=== PATIENT | female | born 1950 | race Caucasian/White ===

== ENCOUNTER → 2016-08-19 | Outpatient (CLI) | payer MEDICARE ==
--- NOTE | 2016-08-19 15:29 | Diagnostic Imaging Report ---
EXAMINATION: Bilateral diagnostic mammogram with a Computer Aided Detection (CAD) system. INDICATION: Multiple nodules are seen on the right on the previous mammograms of 05/13/2016 and 01/01/2016 exams. FINDINGS: The breasts are composed of heterogeneously dense parenchyma which may decrease mammographic sensitivity. There is bilateral nodularity to the breast parenchyma, more prominent on the right side. No definite change from the prior exams, however, is seen. Bilateral benign-appearing calcifications are noted. IMPRESSION: Stable bilateral nodularity to the breast parenchyma is noted bilaterally. An ultrasound evaluation is pending. ACR BI-RADS Category 0: Incomplete. (Needs additional imaging evaluation). Result letter will be mailed to the patient. Note: At least 10% of breast cancer is not imaged by mammography. Dictated by: Dictated on workstation # [id number]
--- NOTE | 2016-08-19 15:34 | Diagnostic Imaging Report ---
EXAMINATION: Bilateral breast ultrasound. INDICATION: Nodularity of the breast parenchyma, stable x 1 year. FINDINGS: The four-quadrants and retroareolar region of each breast were scanned with no underlying abnormality seen in the left breast. In the right breast, there is a simple cyst at the 9 o'clock zone 7 cm from the nipple measuring 1.4 x 0.5 x 1.1 cm in size. This may correlate with one of the nodules seen on mammography. No suspicious mass. IMPRESSION: No suspicious mass. Stable nodularity in the breasts is probably related to a benign parenchymal pattern. Another followup in 12 months with mammography is recommended to ensure longer-term stability. ACR BI-RADS Category 3: Probably benign findings. Dictated by: Dictated on workstation # [id number]
== END ==
LOC: RAD 13:05
PROVIDERS: ATTEND Family Medicine
DX: R92.8 Other abnormal and inconclusive findings on diagnostic imaging of breast (principal)
CPT/HCPCS: 77066

== ENCOUNTER 2016-12-17 15:15 | Outpatient (RCR) | payer MEDICARE, MEDICAID | END 2016-12-19 | disposition home or self-care (01) | PROVIDERS: ATTEND Orthopaedic Surgery | DX: Z47.1 Aftercare following joint replacement surgery; Z96.651 Presence of right artificial knee joint ==

== ENCOUNTER 2017-01-15 12:57 | Outpatient (RCR) | payer MEDICARE, MEDICAID | END 2017-02-05 08:55 | disposition home or self-care (01) | PROVIDERS: ATTEND Orthopaedic Surgery | DX: Z47.1 Aftercare following joint replacement surgery (principal); Z96.651 Presence of right artificial knee joint ==

== ENCOUNTER 2017-11-17 05:59 | Inpatient (IN) | payer MEDICARE, MEDICAID ==
--- NOTE | 2017-11-08 13:08 | HISTORY AND PHYSICAL ---
DATE OF SERVICE: ADMISSION HISTORY AND PHYSICAL This will be for inpatient admission on 11/17/2017 for left total knee arthroplasty. DATE OF ADMISSION: 11/17/2017. HISTORY OF PRESENT ILLNESS: The patient is a 67-year-old female with longstanding progressive left knee pain. Radiographs reveal severe medial and patellofemoral arthrosis with moderate lateral compartment arthrosis. She has undergone treatment with injections, physical therapy, anti-inflammatories and activity modifications without relief. The patient has to ambulate with assistive devices because of the knee. Due to functional impairment and failure to improve with conservative measures, the patient elected to proceed with surgical intervention. REVIEW OF SYSTEMS: No chest pain, no shortness of breath. No dysuria. PAST MEDICAL HISTORY: Hypertension, hyperlipidemia, osteoporosis. PAST SURGICAL HISTORY: Right total knee arthroplasty, cataracts and lipoma excision. FAMILY HISTORY: Noncontributory. PRIMARY CARE PROVIDER: [facility]. MEDICATIONS: Lisinopril, simvastatin, calcium, turmeric, Naprosyn, Tylenol, alendronate and hydrocodone. ALLERGIES: PENICILLIN. SOCIAL HISTORY: The patient drinks alcohol rarely. Denies tobacco use. PHYSICAL EXAMINATION: GENERAL: The patient is well developed, well-nourished, no acute distress. HEENT: Normocephalic, atraumatic. Pupils are equal, round and reactive to light. Oropharynx is clear. NECK: Supple, no lymphadenopathy. LUNGS: Clear to auscultation bilaterally. HEART: Regular rate and rhythm. ABDOMEN: Soft, nontender, nondistended. EXTREMITIES: The left knee demonstrates a moderate effusion. There is no erythema or warmth. No skin lesions noted. Range of motion 0/120. No varus valgus laxity. Trace anterior drawer, negative posterior drawer. There is patellofemoral crepitus and pain with patellar loading. She has pain medially with Daisha's and palpation along her medial femoral condyle. IMPRESSION: Left knee severe osteoarthritis unresponsive to conservative measures. PLAN: Left total knee arthroplasty. Risks, benefits, options, ramifications and recovery have been discussed at length with the patient. She understands and wishes to proceed. The patient will require inpatient admission for gait training, pain management and comorbidities including obesity, which will lead to need for more intensive therapy prior to discharge. Job ID: [id number] DocumentID: [id number] Dictated Date: 11/08/2017 09:58:25 Outer Diameter Technician Date: 11/08/2017 10:30:04 Dictated By: LEX LLOYD MD
[~2017-11-17] VITALS: Ht 157.5 cm; Wt 99.3 kg
[~2017-11-17 05:59] MED LIST: ATOR40TA70 PO; DOXY100C42 PO; LISI1TAB10 PO
--- OUTSIDE RECORDS SUMMARY | 2017-11-17 06:04 | XMS REPORT ---
Author Author ALEJANDRO FORD [facility] Address [address] [place] [address] Care Team Providers Care Kinesiologist Name Role Phone ALEJANDRO FORD Unavailable PROBLEMS Type Condition ICD9-CM Code LZW19-FK Code Onset Dates Condition Status SNOMED Code Problem Osteoarthritis of both hips, unspecified osteoarthritis type M16.0 Active 259982557 Problem Mixed hyperlipidemia E78.2 Active 419936276 Problem Rosacea L71.9 Active 286982816 Problem Essential hypertension I10 Active 99174736 Problem Status post right knee replacement Z96.651 Active 782843317 Problem Insulin resistance E88.81 Active 62636559 Problem BMI 40.0-44.9, adult Z68.41 Active 703430609 Problem Primary osteoarthritis involving multiple joints M15.0 Active 616325702 Problem Other obesity due to excess calories E66.09 Active 65549659299886 Problem Abnormal mammogram R92.8 Active 256625596 Problem Body mass index (BMI) of 40.0-44.9 in adult Z68.41 Active 332481061 ALLERGIES Substance Reaction Event Type Date Status Penicillin V Potassium hives Drug Allergy 03 Dec, 2016 Active ENCOUNTERS Encounter Location Date Diagnosis [facility] [id number] [place] [address]608- [address] Sep, 2018 BMI 40.0-44.9, adult Z68.41 ; Encounter for immunization Z23 and Essential hypertension I10 [facility] [id number] [address] Aug, Screening for breast cancer Z12.31 [facility] [address] [place] [address] 10752- 9621 July, [facility] [id number] [address] July, Medicare annual wellness visit, initial Z00.00 ; Body mass index (BMI) of 40.0-44.9 in adult Z68.41 ; Essential hypertension I10 ; Primary osteoarthritis involving multiple joints M15.0 and Osteoarthritis of both hips, unspecified osteoarthritis type M16.0 [place] [address] [address] Apr, [place] [id number] [place] [address] 49888- 3175 Mar, Essential hypertension I10 ; Mixed hyperlipidemia E78.2 and Insulin resistance E88.81 [place] [id number] [place] [address] 09386- 9294 Mar, Essential hypertension I10 ; Mixed hyperlipidemia E78.2 ; BMI 40.0-44.9, adult Z68.41 and Insulin resistance E88.81 [place] [id number] [place] [address] 51826- 1871 Dec, Essential hypertension I10 ; Mixed hyperlipidemia E78.2 ; Screening for diabetes mellitus (DM) Z13.1 ; Other obesity due to excess calories E66.09 ; Body mass index (BMI) of 40.0-44.9 in adult Z68.41 ; Abnormal mammogram R92.8 ; Primary osteoarthritis involving multiple joints M15.0 and Encounter for immunization Z23 [place] [address] [place] [address] 40334- 7018 14 Nov, 2016 Rosacea L71.9 [place] [id number] [place] [address] 61202- 6830 08 Nov, 2016 [place] [id number] [place] [address] 80287- 2274 13 Sep, 2016 Arthrofibrosis of knee joint, right M24.661 and Osteoarthritis of left knee, unspecified osteoarthritis type M17.12 [place] [address] [place] [address] 51689- 6578 Aug, Rosacea L71.9 [place] [id number] [place] [address] 55069- 0639 29 Aug, 2016 Arthrofibrosis of knee joint, right M24.661 ; Osteoarthritis of left knee, unspecified osteoarthritis type M17.12 and Osteoarthritis of both hips, unspecified osteoarthritis type M16.0 [place] [address], [place] [address] 15 Aug, 2016 Status post right knee replacement Z96.651 [place] [id number] [place] [address] 22174- 5685 14 Aug, 2016 [place] [id number] [place] [address] 08416- 2065 14 Aug, 2016 [place] [id number] [place] [address] 92238- 6335 Aug, [place] [id number] [place] [address] 21035- 9085 08 Aug, 2016 Essential hypertension I10 and Screening for diabetes mellitus (DM) Z13.1 [place] [address] [place] [address] 86752- 9788 July, History of abnormal mammogram Z87.898 [place] [id number] [place] [address] 74264- 5715 July, Essential hypertension I10 ; Status post right knee replacement Z96.651 ; Cataract of both eyes, unspecified cataract type H26.9 ; Breast cancer screening Z12.39 and Screening for diabetes mellitus (DM) Z13.1 [place] [address], [place] [address] July, IMMUNIZATIONS Vaccine Route Administration Date Status FLUZONE HIGH DOSE (65 AND UP) 2017 IM Intramuscular Dec 22, 2016 Administered SOCIAL HISTORY Never Assessed REASON FOR VISIT Hypertension--[place]upp[place]n PLAN OF CARE Activity Details Follow Up 3 Months with Luis RODRIGUEZ Reason: VITAL SIGNS Height 5'2" in 2016-12-22 Weight 236.3 lbs 2016-12-22 Temperature 98.3 degrees Fahrenheit 2016-12-22 Heart Rate 88 bpm 2016-12-22 Respiratory Rate 20 2016-12-22 BMI 43.22 kg/m2 2016-12-22 Blood pressure systolic 160 mmHg 2016-12-22 Blood pressure diastolic 84 mmHg 2016-12-22 MEDICATIONS Medication Instructions Dosage Frequency Start Date End Date Duration Status Lisinopril-Hydrochlorothiazide 20-25 MG Orally Once a day 2 tablets 24h Active Alendronate Sodium 70 MG Orally once monthly 1 tablet Not-Taking Doxycycline Hyclate 100 mg Orally Once a day 1 capsule 24h Aug, Feb, 30 days Active Simvastatin 20 mg Orally Once a day 2 tablets 24h Active RESULTS No Results PROCEDURES Procedure Date Ordered Result Body Site FLUZONE HIGH DOSE 65 AND UP 2015Dec 22, 2016 SINGLE IMMUNIZATION ADMIN Dec 22, 2016 [facility] VISIT ESTABLISHED PATIENT Dec 22, 2016 INSTRUCTIONS MEDICATIONS ADMINISTERED No Known Medications MEDICAL (GENERAL) HISTORY Type Description Date Medical History hypertension Medical History hyperlipidemia Medical History osteoporosis Medical History Arthritis Surgical History right knee replacement 10/2015 Surgical History cataract-lens implants both eyes Surgical History lumpectomy side of back (large lump, big as football) 2015 Surgical History Right knee scope- scar tissue removed by Dr. Valadez 2017 Hospitalization History Surgery(s)/Childbirth(s) only
--- OUTSIDE RECORDS SUMMARY | 2017-11-17 06:04 | XMS REPORT ---
Author Author ALEJANDRO FORD [facility] Address [address] [place] [address] Care Team Providers Care Cafe Associate Name Role Phone ALEJANDRO FORD Unavailable PROBLEMS Type Condition ICD9-CM Code FJA33-NB Code Onset Dates Condition Status SNOMED Code Problem Osteoarthritis of both hips, unspecified osteoarthritis type M16.0 Active 641469378 Problem Mixed hyperlipidemia E78.2 Active 945584694 Problem Rosacea L71.9 Active 224258705 Problem Essential hypertension I10 Active 84343314 Problem Status post right knee replacement Z96.651 Active 159420354 Problem Insulin resistance E88.81 Active 47849798 Problem BMI 40.0-44.9, adult Z68.41 Active 851944806 Problem Primary osteoarthritis involving multiple joints M15.0 Active 322443902 Problem Other obesity due to excess calories E66.09 Active 73022692010268 Problem Abnormal mammogram R92.8 Active 158607396 Problem Body mass index (BMI) of 40.0-44.9 in adult Z68.41 Active 557253403 ALLERGIES Substance Reaction Event Type Date Status Penicillin V Potassium hives Drug Allergy July, Active ENCOUNTERS Encounter Location Date Diagnosis [place] [address] [place] [address] 24657- 1679 Sep, [facility] [id number] [place] [address] 27125- 8960 Sep, 2018 BMI 40.0-44.9, adult Z68.41 ; Encounter for immunization Z23 and Essential hypertension I10 [facility] [id number] [place] [address] 72173- 9186 Aug, Screening for breast cancer Z12.31 [place] [address] [place] [address] 91036- 7186 July, [place] [address], [place] [address] July, Medicare annual wellness visit, initial Z00.00 ; Body mass index (BMI) of 40.0-44.9 in adult Z68.41 ; Essential hypertension I10 ; Primary osteoarthritis involving multiple joints M15.0 and Osteoarthritis of both hips, unspecified osteoarthritis type M16.0 [place] [id number] [place] [address] 81500- 9083 Apr, [place] [id number] [place] [address] 79416- 8798 Mar, Essential hypertension I10 ; Mixed hyperlipidemia E78.2 and Insulin resistance E88.81 [address] [id number] [place] [address] 12842- 5341 Mar, Essential hypertension I10 ; Mixed hyperlipidemia E78.2 ; BMI 40.0-44.9, adult Z68.41 and Insulin resistance E88.81 [address] [place] [address] 14997- 4171 Dec, Essential hypertension I10 ; Mixed hyperlipidemia E78.2 ; Screening for diabetes mellitus (DM) Z13.1 ; Other obesity due to excess calories E66.09 ; Body mass index (BMI) of 40.0-44.9 in adult Z68.41 ; Abnormal mammogram R92.8 ; Primary osteoarthritis involving multiple joints M15.0 and Encounter for immunization Z23 [address], [place] [address] 14 Nov, 2016 Rosacea L71.9 [address] [place] [address] 17438- 5666 08 Nov, 2016 [address] [id number] [place] [address] 51062- 1410 Sep, Arthrofibrosis of knee joint, right M24.661 and Osteoarthritis of left knee, unspecified osteoarthritis type M17.12 [address] [address] [id number] [place] [address] 15815- 9514 30 Aug, 2016 Rosaluisa L71.9 [place] [address], [place] [address]- 16[address] 29 Aug, 2016 Arthrofibrosis of knee joint, right M24.661 ; Osteoarthritis of left knee, unspecified osteoarthritis type M17.12 and Osteoarthritis of both hips, unspecified osteoarthritis type M16.0 [place] [id number] [place] [address] 20815- 0186 15 Aug, 2016 Status post right knee replacement Z96.651 [place] [id number] [place] [address] 88951- 5890 14 Aug, 2016 [place] [id number] [place] [address] 66470- 4853 14 Aug, 2016 [place] [id number] [place] [address] 84101- 2866 Aug, [place] [id number] [place] [address] 38844- 2181 08 Aug, 2016 Essential hypertension I10 and Screening for diabetes mellitus (DM) Z13.1 [place] [id number] [place] [address] 56587- 1321 17 Jul, 2016 History of abnormal mammogram Z87.898 [place] [id number] [place] [address] 11270- 2672 July, Essential hypertension I10 ; Status post right knee replacement Z96.651 ; Cataract of both eyes, unspecified cataract type H26.9 ; Breast cancer screening Z12.39 and Screening for diabetes mellitus (DM) Z13.1 [address] [address] [place] [address] 75657- 8494 July, IMMUNIZATIONS No Known Immunizations SOCIAL HISTORY Never Assessed REASON FOR VISIT Medicare AWV - Initial Visit-SUKI Moody PLAN OF CARE Activity Details Follow Up 1 Year with Luis for MAWV, and 3 months for CHM Reason: VITAL SIGNS Height 5'2" in 2017-08-11 Weight 233 lbs 2017-08-11 Temperature 98 degrees Fahrenheit 2017-08-11 Heart Rate 80 bpm 2017-08-11 Respiratory Rate 20 2017-08-11 BMI 42.61 kg/m2 2017-08-11 Blood pressure systolic 126 mmHg 2017-08-11 Blood pressure diastolic 80 mmHg 2017-08-11 MEDICATIONS Medication Instructions Dosage Frequency Start Date End Date Duration Status Lisinopril-Hydrochlorothiazide 20-25MG Orally Once a day 2 tablets 24h 90 days Active Lipitor 40 mg Orally Once a day 1 tablet 24h 90 Active Doxycycline Hyclate 100MG Orally Once a day 1 capsule 24h Active Lidoderm 5 % Externally Once a day 1 patch to skin remove after 12 hours 24h July, Nov, 30 days Active RESULTS No Results PROCEDURES Procedure Date Ordered Result Body Site [facility] VISIT IPPE/AWV August 11, 2017 ANNUAL JOEL VST; [facility] PPS INIT August 11, 2017 PT TOBACCO SCREEN RCVD TLK August 11, 2017 FALL RISK ASSESSMENT DOCD August 11, 2017 INSTRUCTIONS MEDICATIONS ADMINISTERED No Known Medications MEDICAL (GENERAL) HISTORY Type Description Date Medical History hypertension Medical History hyperlipidemia Medical History osteoporosis Medical History Arthritis Surgical History right knee replacement 10/2015 Surgical History cataract-lens implants both eyes Surgical History lumpectomy side of back (large lump, big as football) 2015 Surgical History Right knee scope- scar tissue removed by Dr. Valadez 2016 Hospitalization History Surgery(s)/Childbirth(s) only
--- OUTSIDE RECORDS SUMMARY | 2017-11-17 06:04 | XMS REPORT ---
Author Author ALEJANDRO FORD [facility] Address [address] [place] [address] Care Team Providers Care Procedures Rn Name Role Phone ALEJANDRO FORD Unavailable PROBLEMS Type Condition ICD9-CM Code CLX85-FO Code Onset Dates Condition Status SNOMED Code Problem Osteoarthritis of both hips, unspecified osteoarthritis type M16.0 Active 608461361 Problem Mixed hyperlipidemia E78.2 Active 546334235 Problem Rosacea L71.9 Active 526866556 Problem Essential hypertension I10 Active 83932479 Problem Status post right knee replacement Z96.651 Active 294402900 Problem Insulin resistance E88.81 Active 26922762 Problem BMI 40.0-44.9, adult Z68.41 Active 367045588 Problem Primary osteoarthritis involving multiple joints M15.0 Active 859566744 Problem Other obesity due to excess calories E66.09 Active 94428390961417 Problem Abnormal mammogram R92.8 Active 127248004 Problem Body mass index (BMI) of 40.0-44.9 in adult Z68.41 Active 588105066 ALLERGIES No Information ENCOUNTERS Encounter Location Date Diagnosis [place] [place] [address] 29252- 6089 July, Medicare annual wellness visit, initial Z00.00 [facility] [address] [place] [address] 27335- 5568 Apr, [facility] [id number] [place] [address] 53040- 3403 Mar, Essential hypertension I10 ; Mixed hyperlipidemia E78.2 and Insulin resistance E88.81 [facility] [address] [place] [address] 34737- 1487 Mar, Essential hypertension I10 ; Mixed hyperlipidemia E78.2 ; BMI 40.0-44.9, adult Z68.41 and Insulin resistance E88.81 [place] [id number] [place] [address] 93434- 4452 03 Dec, 2017 Essential hypertension I10 ; Mixed hyperlipidemia E78.2 ; Screening for diabetes mellitus (DM) Z13.1 ; Other obesity due to excess calories E66.09 ; Body mass index (BMI) of 40.0-44.9 in adult Z68.41 ; Abnormal mammogram R92.8 ; Primary osteoarthritis involving multiple joints M15.0 and Encounter for immunization Z23 [place] [id number] [place] [address] 82236- 7368 14 Nov, 2016 Rosacea L71.9 [place] [address] 52574- 1623 08 Nov, 2016 [place] [address] 59177- 7119 13 Sep, 2016 Arthrofibrosis of knee joint, right M24.661 and Osteoarthritis of left knee, unspecified osteoarthritis type M17.12 [place] [id number] [place] [address] 26193- 2717 30 Aug, 2016 Rosacea L71.9 [place] [id number] [place] [address] 24522- 7433 29 Aug, 2016 Arthrofibrosis of knee joint, right M24.661 ; Osteoarthritis of left knee, unspecified osteoarthritis type M17.12 and Osteoarthritis of both hips, unspecified osteoarthritis type M16.0 [place] [id number] [place] [address] 89562- 5142 15 Aug, 2016 Status post right knee replacement Z96.651 [place] [id number] [place] [address] 96276- 8563 14 Aug, 2016 [place] [id number] [place] [address] 21594- 0606 14 Aug, 2016 [place] [id number] [place] [address] 69988- 0123 14 Aug, 2016 [place] [address] [facility] [id number] [address] 08 Aug, 2016 Essential hypertension I10 and Screening for diabetes mellitus (DM) Z13.1 [place] [address] [address]- 9088 17 Jul, 2016 History of abnormal mammogram Z87.898 [place] [address] [place] [address] 51407- 6599 15 Jul, 2016 Essential hypertension I10 ; Status post right knee replacement Z96.651 ; Cataract of both eyes, unspecified cataract type H26.9 ; Breast cancer screening Z12.39 and Screening for diabetes mellitus (DM) Z13.1 [place] [id number], [place] [address]- 8467 12 Jul, 2016 IMMUNIZATIONS No Known Immunizations SOCIAL HISTORY Never Assessed REASON FOR VISIT Acne PLAN OF CARE VITAL SIGNS MEDICATIONS Medication Instructions Dosage Frequency Start Date End Date Duration Status Doxycycline Hyclate 100 mg Orally Once a day 1 capsule 24h Aug, Feb, 30 days Active RESULTS No Results PROCEDURES No Known procedures INSTRUCTIONS MEDICATIONS ADMINISTERED No Known Medications MEDICAL [...]
--- OUTSIDE RECORDS SUMMARY | 2017-11-17 06:04 | XMS REPORT ---
Author Author ALEJANDRO FORD Organization [facility] Address [address] [place] [address] Care Team Providers Care Bottom Precipitator Operator Name Role Phone ALEJANDRO FORD Unavailable PROBLEMS Type Condition ICD9-CM Code JEC40-JP Code Onset Dates Condition Status SNOMED Code Problem Essential hypertension I10 Active 15517830 Problem Osteoarthritis of both hips, unspecified osteoarthritis type M16.0 Active 548594370 Problem Status post right knee replacement Z96.651 Active 178492048 Problem Other obesity due to excess calories E66.09 Active 57499977577976 Problem Mixed hyperlipidemia E78.2 Active 841259671 Problem Body mass index (BMI) of 40.0-44.9 in adult Z68.41 Active 885949640 Problem Rosacea L71.9 Active 938590485 Problem Abnormal mammogram R92.8 Active 093828135 Problem Primary osteoarthritis involving multiple joints M15.0 Active 773793500 ALLERGIES No Information SOCIAL HISTORY Never Assessed PLAN OF CARE VITAL SIGNS MEDICATIONS No Known Medications RESULTS Name Result Date Reference Range Mammogram Dx, Bilateral 2016-08-19 PROCEDURES No Known procedures IMMUNIZATIONS No Known Immunizations MEDICAL (GENERAL) HISTORY Type Description Date Medical History hypertension Medical History hyperlipidemia Medical History osteoporosis Medical History Arthritis Surgical History right knee replacement 10/2015 Surgical History cataract-lens implants both eyes Surgical History lumpectomy side of back (large lump, big as football) 2016 Surgical History Right knee scope- scar tissue removed by Dr. Valadez 2017 Hospitalization History Surgery(s)/Childbirth(s) only
--- OUTSIDE RECORDS SUMMARY | 2017-11-17 06:04 | XMS REPORT ---
Author Author ASAF ESCOBAR [facility] Address [address] [place] [address] Care Team Providers Care Drivers' Cash Clerk Name Role Phone ASAF ESCOBAR Unavailable PROBLEMS Type Condition ICD9-CM Code [id number] Code Onset Dates Condition Status SNOMED Code Problem Osteoarthritis of both hips, unspecified osteoarthritis type M16.0 Active 892097490 Problem Mixed hyperlipidemia E78.2 Active 860588512 Problem Rosacea L71.9 Active 169045709 Problem Essential hypertension I10 Active 10566387 Problem Status post right knee replacement Z96.651 Active 061655763 Problem Insulin resistance E88.81 Active 74354828 Problem BMI 40.0-44.9, adult Z68.41 Active 365695919 Problem Primary osteoarthritis involving multiple joints M15.0 Active 770126050 Problem Other obesity due to excess calories E66.09 Active 44911006875831 Problem Abnormal mammogram R92.8 Active 461248358 Problem Body mass index (BMI) of 40.0-44.9 in adult Z68.41 Active 844101979 ALLERGIES No Information ENCOUNTERS Encounter Location Date Diagnosis [place] [address] [place] [address] 96471- 8683 July, Medicare annual wellness visit, initial Z00.00 [place] [address] [place] [address] 62311- 1485 Apr, [facility] [address] [place] [address] [id number] [place] [address] 74783- 6469 Mar, Essential hypertension I10 ; Mixed hyperlipidemia E78.2 and Insulin resistance E88.81 [facility] [address] [place] [address] 71897- 3110 Mar, Essential hypertension I10 ; Mixed hyperlipidemia E78.2 ; BMI 40.0-44.9, adult Z68.41 and Insulin resistance E88.81 [place] [address] [id number] [place] [address] 87478- 6844 03 Dec, 2017 Essential hypertension I10 ; Mixed hyperlipidemia E78.2 ; Screening for diabetes mellitus (DM) Z13.1 ; Other obesity due to excess calories E66.09 ; Body mass index (BMI) of 40.0-44.9 in adult Z68.41 ; Abnormal mammogram R92.8 ; Primary osteoarthritis involving multiple joints M15.0 and Encounter for immunization Z23 [place] [address] [address] [id number] [place] [address] 82516- 9026 14 Nov, 2016 Rosacea L71.9 [place] [address] 51139- 0509 08 Nov, 2016 [place] [address] 85178- 1948 13 Sep, 2016 Arthrofibrosis of knee joint, right M24.661 and Osteoarthritis of left knee, unspecified osteoarthritis type M17.12 [place] [address] [id number] [place] [address] 88360- 1890 30 Aug, 2016 Rosacea L71.9 [place] [address] [id number] [place] [address] 12673- 5347 29 Aug, 2016 Arthrofibrosis of knee joint, right M24.661 ; Osteoarthritis of left knee, unspecified osteoarthritis type M17.12 and Osteoarthritis of both hips, unspecified osteoarthritis type M16.0 [place] [address] [address] [id number] [place] [address] 79523- 8184 15 Aug, 2016 Status post right knee replacement Z96.651 [place] [address] [place] [id number] [place] [address] 24549- 5592 14 Aug, 2016 [place] [address] [place] [id number] [place] [address] 46970- 0479 14 Aug, 2016 [place] [address] [place] [id number] [place] [address] 00554- 1824 14 Aug, 2016 [facility] [address] [facility] [id number] [address] 08 Aug, 2016 Essential hypertension I10 and Screening for diabetes mellitus (DM) Z13.1 [facility] [address] [place] [id number] [address] 3388 17 Jul, 2016 History of abnormal mammogram Z87.898 [place] [address] [place] [address] 31462- 7516 15 Jul, 2016 Essential hypertension I10 ; Status post right knee replacement Z96.651 ; Cataract of both eyes, unspecified cataract type H26.9 ; Breast cancer screening Z12.39 and Screening for diabetes mellitus (DM) Z13.1 [place] [address] [place] [id number] [address]- 0723 12 Jul, 2016 IMMUNIZATIONS No Known Immunizations SOCIAL HISTORY Never Assessed REASON FOR VISIT knee f/u. Consult Asaf Bhakta RT(R) PLAN OF CARE Activity Details Follow Up prn Reason: VITAL SIGNS Height 5'2" in 2016-10-01 Blood pressure systolic 142 mmHg 2016-10-01 Blood pressure diastolic 82 mmHg 2016-10-01 MEDICATIONS Unknown Medications RESULTS No Results PROCEDURES Procedure Date Ordered Result Body Site [facility] VISIT ESTABLISHED PATIENT October 01, 2016 INSTRUCTIONS MEDICATIONS ADMINISTERED No Known Medications [...]
--- OUTSIDE RECORDS SUMMARY | 2017-11-17 06:04 | XMS REPORT ---
Author Author ALEJANDRO FORD Organization [facility] Address [address] [place] [address] Care Team Providers Care Claims Clerk Name Role Phone ALEJANDRO FORD Unavailable PROBLEMS Type Condition ICD9-CM Code FAE33-CV Code Onset Dates Condition Status SNOMED Code Problem Essential hypertension I10 Active 08580480 Problem Osteoarthritis of both hips, unspecified osteoarthritis type M16.0 Active 578394948 Problem Status post right knee replacement Z96.651 Active 903965513 Problem Other obesity due to excess calories E66.09 Active 15349105627273 Problem Mixed hyperlipidemia E78.2 Active 853011047 Problem Body mass index (BMI) of 40.0-44.9 in adult Z68.41 Active 178401107 Problem Rosacea L71.9 Active 593674473 Problem Abnormal mammogram R92.8 Active 357358362 Problem Primary osteoarthritis involving multiple joints M15.0 Active 218658883 ALLERGIES Substance Reaction Event Type Date Status Penicillin V Potassium hives Drug Allergy July, Active SOCIAL HISTORY Never Assessed PLAN OF CARE VITAL SIGNS MEDICATIONS Medication Instructions Dosage Frequency Start Date End Date Duration Status Simvastatin 20 mg Orally Once a day 2 tablets 24h Active Alendronate Sodium 70 MG Orally once monthly 1 tablet Active Lisinopril-Hydrochlorothiazide 20-25 MG Orally Once a day 2 tablets 24h Active RESULTS No Results PROCEDURES No Known procedures IMMUNIZATIONS No Known [...]
--- OUTSIDE RECORDS SUMMARY | 2017-11-17 06:04 | XMS REPORT ---
Author Author ALEJANDRO FORD [facility] Address [address] [place] [address] Care Team Providers Care Shaft Sinker Name Role Phone ALEJANDRO FORD Unavailable PROBLEMS Type Condition ICD9-CM Code NZO89-EK Code Onset Dates Condition Status SNOMED Code Problem Osteoarthritis of both hips, unspecified osteoarthritis type M16.0 Active 730712742 Problem Mixed hyperlipidemia E78.2 Active 057858439 Problem Rosacea L71.9 Active 328618941 Problem Essential hypertension I10 Active 08752732 Problem Status post right knee replacement Z96.651 Active 943477722 Problem Insulin resistance E88.81 Active 15632925 Problem BMI 40.0-44.9, adult Z68.41 Active 264549194 Problem Primary osteoarthritis involving multiple joints M15.0 Active 628801046 Problem Other obesity due to excess calories E66.09 Active 45088818487845 Problem Abnormal mammogram R92.8 Active 021848368 Problem Body mass index (BMI) of 40.0-44.9 in adult Z68.41 Active 765790370 ALLERGIES No Information ENCOUNTERS Encounter Location Date Diagnosis [place] [address] [place] [address] 99291- 6522 Sep, [facility] [address] [place] [address] [id number] [place] [address] 59581- 8605 Sep, 2018 BMI 40.0-44.9, adult Z68.41 ; Encounter for immunization Z23 and Essential hypertension I10 [facility] [address] 24874- 3652 Aug, Screening for breast cancer Z12.31 [place] [address] [place] [address] [id number] [place] [address] 50879- 0381 July, [facility] [address] 21775- 9385 July, Medicare annual wellness visit, initial Z00.00 ; Body mass index (BMI) of 40.0-44.9 in adult Z68.41 ; Essential hypertension I10 ; Primary osteoarthritis involving multiple joints M15.0 and Osteoarthritis of both hips, unspecified osteoarthritis type M16.0 [place] [address] [place] [id number] [place] [address] 35914- 9996 Apr, [place] [address] [place] [id number] [place] [address] 41727- 3332 Mar, Essential hypertension I10 ; Mixed hyperlipidemia E78.2 and Insulin resistance E88.81 [place] [id number] [place] [address] 02621- 8514 Mar, Essential hypertension I10 ; Mixed hyperlipidemia E78.2 ; BMI 40.0-44.9, adult Z68.41 and Insulin resistance E88.81 [place] [address] [place] [id number] [place] [address] 56400- 8537 Dec, Essential hypertension I10 ; Mixed hyperlipidemia E78.2 ; Screening for diabetes mellitus (DM) Z13.1 ; Other obesity due to excess calories E66.09 ; Body mass index (BMI) of 40.0-44.9 in adult Z68.41 ; Abnormal mammogram R92.8 ; Primary osteoarthritis involving multiple joints M15.0 and Encounter for immunization Z23 [place] [address] [place] [id number] [place] [address] 19657- 1009 14 Nov, 2016 Rosacea L71.9 [place] [address] [place] [id number] [place] [address] 80679- 9623 08 Nov, 2016 [place] [address] [place] [id number] [place] [address] 37849- 3659 Sep, Arthrofibrosis of knee joint, right M24.661 and Osteoarthritis of left knee, unspecified osteoarthritis type M17.12 [place] [address] [place] [id number] [place] [address] 80198- 9019 Aug, Rosacea L71.9 [place] [address] [address]- 8364 29 Aug, 2016 Arthrofibrosis of knee joint, right M24.661 ; Osteoarthritis of left knee, unspecified osteoarthritis type M17.12 and Osteoarthritis of both hips, unspecified osteoarthritis type M16.0 [place] [address] [id number] [address]- 8961 15 Aug, 2016 Status post right knee replacement Z96.651 [place] [address] [place] [id number] [place] [address] 87564- 3660 14 Aug, 2016 [place] [address] [place] [id number] [place] [address] 86676- 7261 14 Aug, 2016 [place] [address] [place] [id number] [place] [address] 55041- 2890 14 Aug, 2016 [place] [address] [place] [id number] [place] [address] 08690- 3026 08 Aug, 2016 Essential hypertension I10 and Screening for diabetes mellitus (DM) Z13.1 [place] [address] [place] [address] 67524- 7103 17 Jul, 2016 History of abnormal mammogram Z87.898 [place] [address] [place] [address] 99057- 5921 15 Jul, 2016 Essential hypertension I10 ; Status post right knee replacement Z96.651 ; Cataract of both eyes, unspecified cataract type H26.9 ; Breast cancer screening Z12.39 and Screening for diabetes mellitus (DM) Z13.1 [place] [address] [address]- 7144 July, IMMUNIZATIONS No Known Immunizations SOCIAL HISTORY Never Assessed REASON FOR VISIT cologuard PLAN OF CARE VITAL SIGNS MEDICATIONS Unknown Medications RESULTS No Results PROCEDURES No Known procedures [...]
--- OUTSIDE RECORDS SUMMARY | 2017-11-17 06:05 | XMS REPORT ---
Author Author ALEJANDRO FORD [facility] Address [address] [place] [address] Care Team Providers Care Meeting Specialist Name Role Phone ALEJANDRO FORD Unavailable PROBLEMS Type Condition ICD9-CM Code WDT98-NH Code Onset Dates Condition Status SNOMED Code Problem Osteoarthritis of both hips, unspecified osteoarthritis type M16.0 Active 769858965 Problem Mixed hyperlipidemia E78.2 Active 174708825 Problem Rosacea L71.9 Active 515257865 Problem Essential hypertension I10 Active 94835827 Problem Status post right knee replacement Z96.651 Active 511083610 Problem Insulin resistance E88.81 Active 11624631 Problem BMI 40.0-44.9, adult Z68.41 Active 366799591 Problem Primary osteoarthritis involving multiple joints M15.0 Active 150134364 Problem Other obesity due to excess calories E66.09 Active 30860618759038 Problem Abnormal mammogram R92.8 Active 188797794 Problem Body mass index (BMI) of 40.0-44.9 in adult Z68.41 Active 379059318 ALLERGIES Substance Reaction Event Type Date Status Penicillin V Potassium hives Drug Allergy Mar, Active ENCOUNTERS Encounter Location Date Diagnosis [place] [address] [place] [id number] [address]- 1016 Sep, [facility] [address] [place] [address] [id number] [address]- 2303 Aug, Screening for breast cancer Z12.31 [place] [address] [place] [id number] [place] [address] 84591- 9626 July, [place] [address] [address]- 1701 July, Medicare annual wellness visit, initial Z00.00 ; Body mass index (BMI) of 40.0-44.9 in adult Z68.41 ; Essential hypertension I10 ; Primary osteoarthritis involving multiple joints M15.0 and Osteoarthritis of both hips, unspecified osteoarthritis type M16.0 [place] [address] [place] [address] 92765- 2292 Apr, [place] [address] [place] [id number] [place] [address] 07818- 4020 Mar, Essential hypertension I10 ; Mixed hyperlipidemia E78.2 and Insulin resistance E88.81 [place] [address] [place] [id number] [place] [address] 44215- 2172 Mar, Essential hypertension I10 ; Mixed hyperlipidemia E78.2 ; BMI 40.0-44.9, adult Z68.41 and Insulin resistance E88.81 [place] [address] [place] [id number] [place] [address] 53218- 3295 Dec, Essential hypertension I10 ; Mixed hyperlipidemia E78.2 ; Screening for diabetes mellitus (DM) Z13.1 ; Other obesity due to excess calories E66.09 ; Body mass index (BMI) of 40.0-44.9 in adult Z68.41 ; Abnormal mammogram R92.8 ; Primary osteoarthritis involving multiple joints M15.0 and Encounter for immunization Z23 [place] [address] [place] [id number] [place] [address] 86393- 0514 14 Nov, 2016 Rosacea L71.9 [place] [address] [place] [id number] [place] [address] 29885- 3756 Nov, [place] [address] [place] [id number] [place] [address] 08571- 0095 Sep, Arthrofibrosis of knee joint, right M24.661 and Osteoarthritis of left knee, unspecified osteoarthritis type M17.12 [place] [address] [place] [id number] [place] [address] 55879- 1890 Aug, Rosacea L71.9 [place] [address] [place] [id number] [place] [address] 35395- 3563 Aug, Arthrofibrosis of knee joint, right M24.661 ; Osteoarthritis of left knee, unspecified osteoarthritis type M17.12 and Osteoarthritis of both hips, unspecified osteoarthritis type M16.0 [place] [address] [place] [id number] [place] [address] 31824- 0854 15 Aug, 2016 Status post right knee replacement Z96.651 [place] [address] [place] [id number] [address]- 6461 14 Aug, 2016 [place] [address] [place] [id number] [place] [address] 28344- 5352 14 Aug, 2016 [place] [address] [place] [id number] [place] [address] 18353- 4988 14 Aug, 2016 [place] [address] [place] [id number] [place] [address] 31370- 0034 08 Aug, 2016 Essential hypertension I10 and Screening for diabetes mellitus (DM) Z13.1 [place] [address] [place] [id number] [place] [address] 20388- 2195 17 Jul, 2016 History of abnormal mammogram Z87.898 [place] [address] [place] [id number] [place] [address] 12520- 5714 15 Jul, 2016 Essential hypertension I10 ; Status post right knee replacement Z96.651 ; Cataract of both eyes, unspecified cataract type H26.9 ; Breast cancer screening Z12.39 and Screening for diabetes mellitus (DM) Z13.1 [place] [address] [place] [address] 41367- 8442 12 Jul, 2016 IMMUNIZATIONS No Known Immunizations SOCIAL HISTORY Never Assessed REASON FOR VISIT Blood Pressure fu -- evan benton PLAN OF CARE Activity Details Follow Up 3 Months with Luis for [facility] Reason: VITAL SIGNS Height 5'2" in 2017-04-13 Weight 226.0 lbs 2017-04-13 Temperature 99.3 degrees Fahrenheit 2017-04-13 Heart Rate 78 bpm 2017-04-13 Respiratory Rate 22 2017-04-13 BMI 41.33 kg/m2 2017-04-13 Blood pressure systolic 140 mmHg 2017-04-13 Blood pressure diastolic 86 mmHg 2017-04-13 MEDICATIONS Medication Instructions Dosage Frequency Start Date End Date Duration Status Alendronate Sodium 70 MG Orally once monthly 1 tablet Not-Taking Lisinopril-Hydrochlorothiazide 20-25MG Orally Once a day 2 tablets 24h 90 days Active Simvastatin 20 mg Orally Once a day 2 tablets 24h Active RESULTS No Results PROCEDURES Procedure Date Ordered Result Body Site [facility] VISIT ESTABLISHED PATIENT Apr 13, 2017 INSTRUCTIONS MEDICATIONS ADMINISTERED No Known Medications [...]
--- OUTSIDE RECORDS SUMMARY | 2017-11-17 06:05 | XMS REPORT ---
Author Author ALEJANDRO FORD [facility] Address [address] [place] [address] Care Team Providers Care Hammerer Name Role Phone ALEJANDRO FORD Unavailable PROBLEMS Type Condition ICD9-CM Code DFO93-NC Code Onset Dates Condition Status SNOMED Code Problem Osteoarthritis of both hips, unspecified osteoarthritis type M16.0 Active 139598209 Problem Mixed hyperlipidemia E78.2 Active 857269228 Problem Rosacea L71.9 Active 500275149 Problem Essential hypertension I10 Active 60045431 Problem Status post right knee replacement Z96.651 Active 274045261 Problem Insulin resistance E88.81 Active 24415022 Problem BMI 40.0-44.9, adult Z68.41 Active 028102933 Problem Primary osteoarthritis involving multiple joints M15.0 Active 506085299 Problem Other obesity due to excess calories E66.09 Active 22505944225102 Problem Abnormal mammogram R92.8 Active 487413431 Problem Body mass index (BMI) of 40.0-44.9 in adult Z68.41 Active 071755573 ALLERGIES No Information ENCOUNTERS Encounter Location Date Diagnosis [place] [address] [place] [address] 77297- 0484 July, Medicare annual wellness visit, initial Z00.00 [facility] [address] [place] [address] 00681- 2908 Apr, [facility] [address] [place] [address] [id number] [place] [address] 94413- 5475 Mar, Essential hypertension I10 ; Mixed hyperlipidemia E78.2 and Insulin resistance E88.81 [facility] [address] [place] [address] 49131- 8044 Mar, Essential hypertension I10 ; Mixed hyperlipidemia E78.2 ; BMI 40.0-44.9, adult Z68.41 and Insulin resistance E88.81 [place] [address] [place] [address] [address] [place] [address] 11272- 9781 03 Dec, 2017 Essential hypertension I10 ; Mixed hyperlipidemia E78.2 ; Screening for diabetes mellitus (DM) Z13.1 ; Other obesity due to excess calories E66.09 ; Body mass index (BMI) of 40.0-44.9 in adult Z68.41 ; Abnormal mammogram R92.8 ; Primary osteoarthritis involving multiple joints M15.0 and Encounter for immunization Z23 [place] [address] [place] [address] [id number] [place] [address] 74682- 7146 14 Nov, 2016 Rosacea L71.9 [place] [address] 58440- 9303 08 Nov, 2016 [place] [address] 80741- 2447 13 Sep, 2016 Arthrofibrosis of knee joint, right M24.661 and Osteoarthritis of left knee, unspecified osteoarthritis type M17.12 [place] [address] [place] [id number] [place] [address] 42657- 5900 30 Aug, 2016 Rosacea L71.9 [place] [address] [place] [address] [place] [address] 77881- 2395 29 Aug, 2016 Arthrofibrosis of knee joint, right M24.661 ; Osteoarthritis of left knee, unspecified osteoarthritis type M17.12 and Osteoarthritis of both hips, unspecified osteoarthritis type M16.0 [place] [address] [place] [address] [address] [place] [address] 60046- 8411 15 Aug, 2016 Status post right knee replacement Z96.651 [place] [address] [place] [address] [place] [address] 99308- 5751 14 Aug, 2016 [place] [address] [place] [address] [id number] [place] [address] 18303- 7223 14 Aug, 2016 [place] [address] [place] [id number] [place] [address] 69196- 1088 14 Aug, 2016 [place] [address] N [facility] [id number] [address]- 4088 08 Aug, 2016 Essential hypertension I10 and Screening for diabetes mellitus (DM) Z13.1 [place] [address] [place] [id number] [address]- 6607 17 Jul, 2016 History of abnormal mammogram Z87.898 [place] [address], [place] [address]- 3144 15 Jul, 2016 Essential hypertension I10 ; Status post right knee replacement Z96.651 ; Cataract of both eyes, unspecified cataract type H26.9 ; Breast cancer screening Z12.39 and Screening for diabetes mellitus (DM) Z13.1 [place] [address] [place] [id number] [address]- 1840 12 Jul, 2016 IMMUNIZATIONS No Known Immunizations SOCIAL HISTORY Never Assessed REASON FOR VISIT Refill request PLAN OF CARE VITAL SIGNS MEDICATIONS Medication Instructions Dosage Frequency Start Date End Date Duration Status Simvastatin 20 mg Orally Once a day 2 tablets 24h Active Lisinopril-Hydrochlorothiazide 20-25 MG Orally Once a [...]
--- OUTSIDE RECORDS SUMMARY | 2017-11-17 06:05 | XMS REPORT ---
Author Author ALEJANDRO ROMEO Organization [facility] Address [address] [place] [address] Care Team Providers Care Fan Mail Clerk Name Role Phone ALEJANDRO ROMEO Unavailable PROBLEMS Type Condition ICD9-CM Code [id number] Code Onset Dates Condition Status SNOMED Code Problem Essential hypertension I10 Active 84733168 Problem Osteoarthritis of both hips, unspecified osteoarthritis type M16.0 Active 045442949 Problem Status post right knee replacement Z96.651 Active 606168155 Problem Other obesity due to excess calories E66.09 Active 90077878029520 Problem Mixed hyperlipidemia E78.2 Active 595243419 Problem Body mass index (BMI) of 40.0-44.9 in adult Z68.41 Active 336883488 Problem Rosacea L71.9 Active 008866268 Problem Abnormal mammogram R92.8 Active 848780079 Problem Primary osteoarthritis involving multiple joints M15.0 Active 714004873 ALLERGIES Substance Reaction Event Type Date Status Penicillin V Potassium hives Drug Allergy July, Active SOCIAL HISTORY Never Assessed PLAN OF CARE Activity Details Follow Up 3 Months with parul romeo BP Reason: VITAL SIGNS Height 5'2" in 2016-08-03 Weight 246.1 lbs 2016-08-03 Temperature 97.1 degrees Fahrenheit 2016-08-03 Heart Rate 104 bpm 2016-08-03 Respiratory Rate 24 2016-08-03 BMI 45.01 kg/m2 2016-08-03 Blood pressure systolic 169 mmHg 2016-08-03 Blood pressure diastolic 73 mmHg 2016-08-03 MEDICATIONS Medication Instructions Dosage Frequency Start Date [...]
--- OUTSIDE RECORDS SUMMARY | 2017-11-17 06:05 | XMS REPORT ---
Author Author ALEJANDRO FORD [facility] Address [address] [place] [address] Care Team Providers Care Snowboarding Instructor Name Role Phone ALEJANDRO FORD Unavailable PROBLEMS Type Condition ICD9-CM Code COL51-UV Code Onset Dates Condition Status SNOMED Code Problem Osteoarthritis of both hips, unspecified osteoarthritis type M16.0 Active 245134141 Problem Mixed hyperlipidemia E78.2 Active 172641904 Problem Rosacea L71.9 Active 628775617 Problem Essential hypertension I10 Active 98384421 Problem Status post right knee replacement Z96.651 Active 018071167 Problem Insulin resistance E88.81 Active 76798188 Problem BMI 40.0-44.9, adult Z68.41 Active 356052518 Problem Primary osteoarthritis involving multiple joints M15.0 Active 355329548 Problem Other obesity due to excess calories E66.09 Active 99292409079352 Problem Abnormal mammogram R92.8 Active 788079322 Problem Body mass index (BMI) of 40.0-44.9 in adult Z68.41 Active 261042776 ALLERGIES No Information ENCOUNTERS Encounter Location Date Diagnosis [place] [id number] [address] Sep, [facility] [id number] [place] [address] Aug, [facility] [id number] [place] [address] July, [place] [address] [place] [id number] [place] [address] July, Medicare annual wellness visit, initial Z00.00 ; Body mass index (BMI) of 40.0-44.9 in adult Z68.41 ; Essential hypertension I10 ; Primary osteoarthritis involving multiple joints M15.0 and Osteoarthritis of both hips, unspecified osteoarthritis type M16.0 [place] [id number] [address] Apr, [place] [address] [place] [id number] [place] [address] Mar, Essential hypertension I10 ; Mixed hyperlipidemia E78.2 and Insulin resistance E88.81 [place] [address] [place] [id number] [place] [address] Mar, Essential hypertension I10 ; Mixed hyperlipidemia E78.2 ; BMI 40.0-44.9, adult Z68.41 and Insulin resistance E88.81 [place] [id number] [place] [address] Dec, Essential hypertension I10 ; Mixed hyperlipidemia E78.2 ; Screening for diabetes mellitus (DM) Z13.1 ; Other obesity due to excess calories E66.09 ; Body mass index (BMI) of 40.0-44.9 in adult Z68.41 ; Abnormal mammogram R92.8 ; Primary osteoarthritis involving multiple joints M15.0 and Encounter for immunization Z23 [place] [address] [place] [id number] [place] [address] Nov, Rosacea L71.9 [place] [address] [place] [id number] [place] [address] Nov, [place] [address] [place] [id number] [place] [address] Sep, Arthrofibrosis of knee joint, right M24.661 and Osteoarthritis of left knee, unspecified osteoarthritis type M17.12 [place] [id number] [place] [address] Aug, Rosacea L71.9 [place] [id number] [place] [address] Aug, Arthrofibrosis of knee joint, right M24.661 ; Osteoarthritis of left knee, unspecified osteoarthritis type M17.12 and Osteoarthritis of both hips, unspecified osteoarthritis type M16.0 [place] [id number] [address] 15 Aug, 2016 Status post right knee replacement Z96.651 [place] [id number] [address] 14 Aug, 2016 [place] [id number] [address] 14 Aug, 2016 [place] [address] [place] [id number] [place] [address] 14 Aug, 2016 [place] [address] [place] [id number] [place] [address] 08 Aug, 2016 Essential hypertension I10 and Screening for diabetes mellitus (DM) Z13.1 [place] [address] [place] [id number] [place] [address] 17 Jul, 2016 History of abnormal mammogram Z87.898 [place] [address] [place] [id number] [place] [address] 15 Jul, 2016 Essential hypertension I10 ; Status post right knee replacement Z96.651 ; Cataract of both eyes, unspecified cataract type H26.9 ; Breast cancer screening Z12.39 and Screening for diabetes mellitus (DM) Z13.1 [place] [id number] [address] 12 Jul, 2016 IMMUNIZATIONS No Known Immunizations SOCIAL HISTORY Never Assessed REASON FOR VISIT Lab (walk-in) PLAN OF CARE VITAL SIGNS MEDICATIONS Unknown Medications RESULTS No Results PROCEDURES Procedure Date Ordered Result Body Site LAB NOT BILLED BY [facility] Apr 16, 2017 Hemoglobin Test Send Out 0 dollar Apr 16, 2017 VENIPUNCT, ROUTINE* Apr 16, 2017 INSTRUCTIONS MEDICATIONS ADMINISTERED No Known Medications [...]
[2017-11-17] MEDS ORDERED: CEFUROXIME INJECTION 1,500 MG in NS (IVPB) 50 ML IV ONE (06:15)
[2017-11-17 06:20] VITALS: BP 100/49
[2017-11-17] MEDS: LACTATED RINGERS 1,000 ML IV PRN ×3 (06:30→08:31)
[2017-11-17] MEDS ORDERED: ROPIVACAINE 5MG/ML 30ML VIAL ONE (06:39)
[2017-11-17] MEDS ORDERED: fentaNYL INJECTION 100 MCG/2 ML AMP ONE ×2 (06:41→07:54)
[2017-11-17] MEDS ORDERED: MIDAZOLAM 2 MG/2 ML (VERSED) VIAL ONE (06:41)
[2017-11-17] MEDS ORDERED: CATHETER FLUSH 10 ML SYR IV PRN (06:45)
[2017-11-17] MEDS ORDERED: ONDANSETRON 4 MG/2 ML (SDV) Z0FRAN IV ONE (07:00)
--- NOTE | 2017-11-17 07:17 | Progress Note-Pre Operative ---
Pre-Operative Progress Note H&P Reviewed The H&P was reviewed, patient examined and no changes noted. Date Seen by Provider: Nov 17, 2017 Time Seen by Provider: 07:11 Date H&P Reviewed: Nov 17, 2017 Time H&P Reviewed: 07:11 Pre-Operative Diagnosis: left knee primary osteoarthritis LEX LLOYD MD Nov 17, 2017 07:17
--- NOTE | 2017-11-17 07:18 | Progress Note-Post Operative ---
Post-Operative Progess Note Surgeon (s)/Core Layer Machine Operator (s) Surgeon LEX LLOYD MD Core Layer Machine Operator: Arsh Rubio Pre-Operative Diagnosis left knee primary osteoarthritis Post-Operative Diagnosis left knee primary osteoarthritis Procedure & Operative Findings Date of Procedure 11/17/17 Procedure Performed/Findings left total knee arthroplasty Anesthesia Type GETA Estimated Blood Loss Estimated blood loss (mL): minimal Specimens/Packing Specimens Removed none Packing: none LEX LLOYD MD Nov 17, 2017 07:18
[2017-11-17] MEDS ORDERED: OXYC1TAB87 PO (07:19)
--- NOTE | 2017-11-17 07:21 | D/C HH Face to Face Order ---
D/C Face to Face Orders Instructions for Patient Patient Instructions/FollowUp: 3 weeks Physician to follow Patient: 3 weeks Discharge Diet for Home: Regular Diet Patient Data-Allergies,Ht & Wt Patient Allergies: Coded Allergies: Penicillins (Verified Allergy, Unknown, childhood allergy, 11/10/17) Height (Feet): 5 Height (Inches): 2.00 Weight (Pounds): 219 Weight (Ounces): 0.0 Home Health Need/Face to Face Date of Face to Face: Nov 17, 2017 Clinical Findings: Instability, Muscle weakness, Pain with ambulation, Unsteady gait I have seen Pt [id number]: Yes Discharged To: Home Diagnosis/Conditions: left total knee arthroplasty Patient is Homebound due to: Rodger fall risk due to instabilty, Muscle weakness , Pain w/ambulation Homebound Status Due to the above stated illness, injury or surgical procedure (medical condition or diagnosis) and associated clinical findings, the patient is homebound because of his/her inability to leave home except with aid of a supportive device and/or person AND leaving the home requires a considerable and taxing effort or is medically contraindicated. Pt req the following assistanc: Walker Home Health Nursing Orders Home Health Services Order: Physical Therapy-Evaluate & Treat Home Health Infusion Therapy Line Start Date: Nov 17, 2017 Line Start Time: 06 Line Type: Peripheral IV Site Location: Forearm Therapy Orders Therapy Orders: PT to assess for OT Therapy Specific Orders: Eval assistive deivces, Teach enviro modifications/ safety, Gait training, Increase strength/endurance, Provider maintenance therapy , Restore ROM (DC left knee ca and apply steri strips 12/01/17) Certify Stmt I certify that this patient is under my care and that I, a nurse practitioner or a physician; a medical clerical assistant working with me, had a face to face encounter that - meets the physician face to face encounter requirements with this patient as dated. LEX LLOYD MD Nov 17, 2017 07:21
[2017-11-17] MEDS ORDERED: ONDANSETRON 4 MG/2 ML (SDV) Z0FRAN IVP PRN ×2 (07:30→09:15)
[2017-11-17] MEDS ORDERED: ACETAMINOPHEN 325 MG TABLET PO PRN (07:30)
[2017-11-17] MEDS ORDERED: diphenhydrAMINE 50 MG/ML INJ (BENADRYL) IVP PRN (07:30)
[2017-11-17] MEDS ORDERED: INTRA-ARTICULAR IU ONE ×5 (07:30)
[2017-11-17] MEDS ORDERED: LACTATED RINGERS 1,000 ML IV ONE ×2 (08:10→08:44)
[2017-11-17] MEDS ORDERED: proPOfol 200 MG/20 ML (DIPRIVAN) VIAL IV ONE (08:23)
[2017-11-17] MEDS ORDERED: LIDOCAINE PF 2% 5 ML (XYLOCAINE) VIAL ONE (08:23)
[2017-11-17] MEDS ORDERED: DEXAMETHASONE 10 MG/ML (DECADRON) 1 ML VIAL ONE (08:23)
[2017-11-17] MEDS ORDERED: SEVOFLURANE (ULTANE) 15 ML INHAL SOLN ONE ×6 (08:44)
[2017-11-17] MEDS ORDERED: PHENYLEPHRINE 100 MCG/ML 10 ML (ANESTHESIA) SYR ONE (08:44)
[2017-11-17] MEDS ORDERED: morphine INJ 10 MG/ML 1ML (SYR OR VIAL) IVP ONE (09:15)
--- NOTE | 2017-11-17 09:46 | Progress Note-Standard ---
Standard Progress Note Progress Notes/Assess & Plan Date Seen by Provider: Nov 17, 2017 Time Seen by Provider: 09:44 Progress/Assessment & Plan no complaints denies paresthesias radiographs--HW well positioned without fracture LLE--intact DF and PF of toes and ankle. 2 plus DP pulse with brisk cap refill sensation intact to light touch throughout s/p LTKA mobilize as able LEX LLOYD MD Nov 17, 2017 09:46
[2017-11-17 10:05] VITALS: BP 109/56
[2017-11-17] MEDS: morphine PCA 30 MG/30 ML VIAL IV PRN (10:30)
--- NOTE | 2017-11-17 10:30 | Diagnostic Imaging Report ---
Left knee at 920 hours. INDICATION: Postop. AP and lateral views of the left knee were received from the OR. There are no prior studies available for comparison. FINDINGS: There is a total knee prosthesis in place. The prosthetic components appear to be in good position. There are skin ca along the anterior aspect of the knee joint and there is gas in the soft tissues about the knee joint. There is no fracture or acute bony abnormality evident. IMPRESSION: Stable postoperative left knee. Dictated by: Dictated on workstation # [id number]
[2017-11-17] MEDS: NS IV 1000 ML 1,000 ML IV SCH ×2 (10:35→21:55)
[2017-11-17] MEDS: SENNA W/DOCUSATE (SENOKOT S) TABLET PO SCH ×2 (10:36→21:54)
[2017-11-17 12:00] VITALS: BP 109/53
[2017-11-17] MEDS: oxyCODONE/APAP 5/325MG (PERCOCET 5) TABLET PO PRN ×2 (12:10→21:54)
--- NOTE | 2017-11-17 14:04 | OPERATIVE REPORT ---
DATE OF SERVICE: 11/17/2017 PREOPERATIVE DIAGNOSIS: Left knee primary osteoarthritis. POSTOPERATIVE DIAGNOSIS: Left knee primary osteoarthritis. PROCEDURE: Left total knee arthroplasty. SURGEON: Rodrigo Lloyd MD POTATO GRADER: Arsh Rubio, who assisted throughout the procedure and closed the incision. ANESTHESIA: General endotracheal by Coni Barraza CRNA. TOURNIQUET TIME: Approximately 68 minutes at 300 mmHg. ESTIMATED BLOOD LOSS: Minimal. DRAINS: None. COMPLICATIONS: None. POSTOPERATIVE PLAN: Routine protocol. MATERIALS: MicroPort cemented size 4 femur, cemented size 4 tibia with 10 mm insert and cemented size 29 patella. The patient was transferred to the recovery room awake and in stable condition. STATEMENT OF MEDICAL NECESSITY: The patient is a 67-year-old female with longstanding progressive left knee pain. She had undergone treatment with injections, anti-inflammatories and rest without relief. Radiographs revealed severe tricompartmental osteoarthritis. Due to functional impairment and failure to improve with conservative measures, the patient elected to proceed with surgical intervention. DESCRIPTION OF PROCEDURE: After risks and benefits of procedure were discussed and questions were answered, an informed consent was signed and placed on the chart. The operative site was confirmed in the preoperative holding area initialed by the surgeon. The patient was then transferred to the operating room. After adequate levels of general endotracheal anesthetic were obtained, a timeout was called confirming the operative site. The left lower extremity was then prepped and draped in the usual sterile fashion with the leg elevated and the knee flexed. Tourniquet was inflated to 300 mmHg. A standard anterior approach was utilized. Hemostasis was obtained with cautery. A medial parapatellar arthrotomy was performed leaving 1 cm cuff on the patella for later reattachment. A portion of the fat pad was resected and subperiosteal release was performed in the proximal medial tibia being careful to stay on the bony surface. The ACL was resected. The intramedullary guide was passed into the femoral canal. The distal cutting block was placed and the distal cut was made. The femur was sized to a size 4. The 4 cutting block was placed parallel to the epicondylar access and the cuts were made from posterior to anterior. The trochlear guide was placed and the trochlear cut was made. A subperiosteal release was then carefully performed posteriorly being careful to stay on the bony surface of posterior distal femur. Intramedullary guide was then passed into the tibia. The drop chelita was placed and the drop chelita transected the intramedullary axis from the cutting block. The cutting block was placed. The cutting block was then used to perform the cut. The 4 baseplate was placed with excellent coverage and this was prepared with the drill and keel punch ensuring that the drop chelita transected the intramedullary axis as well. The trials were inserted. The patella was then prepared using the free hand technique by resecting 10 mm off the undersurface. The peg guide was placed and the peg holes were drilled. The 29 button was placed. The knee was taken through range of motion. Full extension was easily obtained; 120 degrees of flexion with gravity was easily obtained. The patella tracked well. There was no anterior/posterior or medial/lateral laxity in flexion or extension. The trials were removed. The joint was irrigated with pulse lavage. Bone ends were irrigated and dried. The tibial baseplate was cemented into position. Excessive cement was removed. The superior surface was irrigated and dried and the polyethylene insert was placed. Distal femur was irrigated and dried and the femoral prosthesis was cemented into position. Excessive cement was removed. The knee was brought into full extension until the cement had cured. The undersurface of the patella was irrigated and dried. The patellar button was cemented into position. Once the cement had cured, the knee was taken through range of motion. Full extension was easily obtained; 120 degrees of flexion with gravity was easily obtained. The patella tracked well. There was no anterior/posterior or medial/lateral laxity in flexion or extension. The joint was further irrigated with pulse lavage and the arthrotomy was closed with #2 Tevdek in [id number] interrupted fashion. The knee was then flexed. The patella tracked well. There was no undue tension at the repair site. The subcutaneous tissues were irrigated using a total of 6 liters throughout the procedure. A 0 Vicryl was used to close the deep subcutaneous tissue, 2-0 Vicryl for the superficial subcutaneous tissue, ca were used on the skin. A soft dressing was applied and the tourniquet was deflated. The patient was transferred to the recovery room awake and in stable condition. Job ID: [id number] DocumentID: [id number] Dictated Date: 11/17/2017 09:09:35 Calender Inspector Date: 11/17/2017 14:03:29 Dictated By: RODRIGO LLOYD MD
--- NOTE | 2017-11-17 15:05 | Physical Therapy Evaluation ---
PT Evaluation-General Medical Diagnosis Admission Date Nov 17, 2017 at 05:59 Medical Diagnosis: L TKA Onset Date: Nov 17, 2017 Therapy Diagnosis Therapy Diagnosis: impaired mobility, strength, ROM due to L TKA Height/Weight Height (Feet): 5 Height (Inches): 2.00 Weight (Pounds): 219 Weight (Ounces): 0.0 Precautions Precautions/Isolations: Fall Prevention, Standard Precautions Weight Bear Status Right Lower Extremity: Right Full Weight Bearing Left Lower Extremity: Left Weight Bearing/Tolerated Referral Physician: Rodrigo Valadez MD Reason for Referral: Evaluation/Treatment Medical History Additional Medical History PAST MEDICAL HISTORY: Hypertension, hyperlipidemia, osteoporosis. PAST SURGICAL HISTORY: Right total knee arthroplasty, cataracts and lipoma excision Reviewed History: Yes Social History Home: Single Level Current Living Status: Entry Into Home: Stairs Without Railing PT Steps Into Home: 4 Prior/Core FIM Prior Level of Function Functional [place] Measure 0=Not Assessed/NA 4=Minimal Assistance 1=Total Assistance 5=Supervision or Setup 2=Maximal Assistance 6=Modified [place] 3=Moderate Assistance 7=Complete [place] Bed Mobility: 7 Transfers (B,C,W/C) (FIM): 7 Gait: 7 Locomotion: 7 PT Evaluation-Current Subjective Pt in bed pre tx, agrees to PT, no pain to report Pt/Family Goals to be independent at home, return to water aerobics Objective Patient Orientation: Person, Place, Time Attachments: SCD's, Polar Pack, IV ROM/Strength ROM Lower Extremities left knee flexion 70 degrees, extension +10 degrees Strength Lower Extremities NT Sensory Vision: Functional Sensation Right Lower Extremit: Intact Sensation Left Lower Extremity: Impaired Sensation Lower Extremities Patient has intact light touch sensation in the left lower extremity but still describes a numb feeling around her knee. Transfers Functional [place] Measure 0=Not Assessed/NA 4=Minimal Assistance 1=Total Assistance 5=Supervision or Setup 2=Maximal Assistance 6=Modified [place] 3=Moderate Assistance 7=Complete [place] Transfers (B, C, W/C) (FIM): 4 Scootin Rollin Supine to/from Sit: 5 Sit to/from Stand: 4 sit<->stand Kori w/ cues for hand placement and safety, supine<->sit SBA Gait Mode of Locomotion: Walk Anticipated Mode of Locomotion: Walk Gait (FIM): 4 Distance: 200' Gait Level of Assist: 4 Gait Persons Needed: 1 Gait Assistive Device: FWW Comments/Gait Description Pt ambulates 200' using FWW w/ CGA. Unsteady gait but no LOB w/ slightly decreased stance time on LLE, Balance Sitting Static: Normal Sitting Dynamic: Normal Standing Static: Good Standing Dynamic: Good Treatment Left TKA protocol x10 (AP, QS, HS, SAQ, LAQ). CPM donned and set to 50/-2, polar care also on. Patient in bed post tx with nurse call, phone, tray, all needs met. Assessment/Needs impaired gait and mobility, strength, ROM secondary to L TKA Rehab Potential: Fair PT Short Term Goals Short Term Goals Time Frame: Nov 24, 2017 Transfers (B,C,W/C) (FIM): 5 Gait (FIM): 5 Gait Distance Comment: 300' Gait Level of Assist: 5 Gait Assistive Device: FWW PT Plan Problem List Problem List: Activity Tolerance, Functional Strength, Safety, Balance, Gait, Transfer, Bed Mobility, ROM Treatment/Plan Treatment Plan: Continue Plan of Care Treatment Plan: Bed Mobility, Education, Functional Activity Nicki, Functional Strength, Gait, Safety, Therapeutic Exercise, Transfers Treatment Duration: Nov 24, 2017 Frequency: 11 times per week Estimated Hrs Per Day: .25 hour per day (15-30') Patient and/or Family Agrees t: Yes Safety Risks/Education Patient Education: Gait Training, Transfer Techniques, Reviewed Precautions, Reviewed Use of Ice, Correct Positioning, Disease Process, Safety Issues Teaching Recipient: Patient Teaching Methods: Demonstration, Discussion Response to Teaching: Reinforcement Needed Discharge Recommendations Plan Pt will perform gait and mobility training, bed mobility training, balance training, functional strengthening/AROM, endurance training, and education Therapy D/C Recommendations: Home w/ Family Support Time/GCodes Time In: 1430 Time Out: 1455 Total Billed Treatment Time: 25 Total Billed Treatment 1 visit EVL 15' EX 10' DERICK [place] PT Nov 17, 2017 15:04
[2017-11-17] MEDS: CEFUROXIME INJECTION 750 MG in NS (IVPB) 50 ML IV SCH ×2 (15:34→23:38)
[2017-11-17 16:00] VITALS: BP 131/68
[2017-11-17 20:00] VITALS: BP 107/57
[2017-11-18 00:35] VITALS: BP 110/53
[2017-11-18 04:24] VITALS: BP 104/55
[2017-11-18 06:02] LABS: HEMOGLOBIN 10.2 G/DL (11.5-16.0)
[2017-11-18] MEDS: MULTIVIT W/MINERALS TAB (THERAGRAN M) PO SCH (06:32)
--- NOTE | 2017-11-18 07:47 | Progress Note-Standard ---
Standard Progress Note Progress Notes/Assess & Plan Date Seen by Provider: Nov 18, 2017 Time Seen by Provider: 07:46 Progress/Assessment & Plan no complaints denies paresthesias radiographs--HW well positioned without fracture LLE--intact DF and PF of toes and ankle. 2 plus DP pulse with brisk cap refill sensation intact to light touch throughout s/p LTKA mobilize as able Final Diagnosis No complaints Vital Signs Date Time Temp Pulse Resp B/P (MAP) Pulse Ox O2 Delivery O2 Flow Rate FiO2 11/18/17 06:47 18 11/18/17 04:24 97.7 77 18 104/55 (71) 96 Room Air 11/18/17 00:35 97.9 69 18 110/53 (72) 97 Room Air 11/17/17 21:00 16 11/17/17 20:00 97.3 77 16 107/57 (74) 97 Room Air 11/17/17 16:00 97.5 77 16 131/68 (89) 97 Room Air 11/17/17 15:25 95 Room Air 11/17/17 12:00 97.6 74 20 109/53 (71) 95 Room Air 11/17/17 10:17 97 Room Air 11/17/17 10:05 97.3 87 20 109/56 (73) 96 Room Air I & O 11/18/17 07:00 Intake Total 4580 ml Balance 4580 ml Laboratory Tests Test 11/18/17 05:55 Range/Units Hemoglobin 10.2 L 11.5-16.0 G/DL Hematocrit 30 L 35-52 % LLE--in CPM. NVI. No calf tenderness. Neg Rut's s/p LTKA PT/OT LEX LLOYD MD Nov 18, 2017 07:47
[2017-11-18 08:00] VITALS: BP 127/61
[2017-11-18] MEDS: ASPIRIN E.C. 81 MG (ECOTRIN) TAB PO SCH (08:28)
[2017-11-18] MEDS: SENNA W/DOCUSATE (SENOKOT S) TABLET PO SCH ×2 (08:28→20:02)
[2017-11-18] MEDS: ENOXAPARIN 30 MG/0.3 ML (LOVENOX) SYR SC SCH ×2 (08:28→19:53)
[2017-11-18] MEDS: oxyCODONE/APAP 5/325MG (PERCOCET 5) TABLET PO PRN ×5 (08:28→23:25)
--- NOTE | 2017-11-18 09:54 | Physical Therapy Daily Note ---
PT Daily Note-Current Subjective Patient agrees to PT. Pain Numeric Pain Scale: 7 Location: Left Location Body Site: Knee Pain Description: Ache, Acute Mental Status Patient Orientation: Normal For Age Attachments: IV Transfers Functional [place] Measure 0=Not Assessed/NA 4=Minimal Assistance 1=Total Assistance 5=Supervision or Setup 2=Maximal Assistance 6=Modified [place] 3=Moderate Assistance 7=Complete IndependenceIRFPAI Quality Coding Scale 6 Independent with activity with or without an assistive device 5 Patient requires set up or clean up by helper. Patient completes activity by themselves 4 Supervision or touching assist (CGA). Holiday provide cues , steadying assist 3 The helper provides less than half the effort to complete the activity 2 The helper provides more than half the effort to complete the activity 1 Dependent. The helper does all the effort to complete an activity 7 Patient refused to complete or attempt activity 9 The patient did not perform the activity before the current illness or injury 88 Not attempted due to Medical conditions or safety concerns Transfers (B, C, W/C) (FIM): 5 Scootin Rollin Supine to/from Sit: 5 Sit to/from Stand: 5 Weight Bearing Right Lower Extremity: Right Full Weight Bearing Left Lower Extremity: Left Weight Bearing/Tolerated Gait Training Gait (FIM): 5 Distance (FIM): 3=150 ft Distance: 300' x 2 Gait Level of Assist: 5 Gait Assistive Device: FWW steady, reciprocal pattern, antalgic Exercises Supine Ex: Ankle pumps, Quad Set, Heel Slides, Straight leg raise Supine Reps: 12 Seated Therapy Exercises: Ankle pumps, Long arc quads Seated Reps: 15 Assessment Patient progressing with treatment plan and is highly motivated with progress. PT Short Term Goals Short Term Goals Time Frame: Nov 24, 2017 Transfers (B,C,W/C) (FIM): 5 Gait (FIM): 5 Gait Distance Comment: 300' Gait Level of Assist: 5 Gait Assistive Device: FWW PT Plan Treatment/Plan Treatment Plan: Continue Plan of Care Treatment Plan: Bed Mobility, Education, Functional Activity Nicki, Functional Strength, Gait, Safety, Therapeutic Exercise, Transfers Treatment Duration: Nov 24, 2017 Frequency: 11 times per week Estimated Hrs Per Day: .25 hour per day (15-30') Patient and/or Family Agrees t: Yes Time/GCodes Time In: 850 Time Out: 915 Total Billed Treatment Time: 25 Total Billed Treatment 1 visit EX 15 min GT 10 min RADHA LEMON PT Nov 18, 2017 09:54
[2017-11-18] MEDS: NS IV 1000 ML 1,000 ML IV SCH ×3 (10:11→23:13)
--- NOTE | 2017-11-18 10:15 | Anesthesia-General Post-Op ---
General Patient Condition Mental Status/LOC: Same as Preop Cardiovascular: Satisfactory Nausea/Vomiting: Absent Respiratory: Satisfactory Pain: Controlled Complications: Absent Post Op Complications Complications None Follow Up Care/Instructions Patient Instructions None needed. Anesthesia/Patient Condition Patient Condition Patient is doing well, no complaints, stable vital signs, no apparent adverse anesthesia problems. No complications reported per nursing. BENJAMIN RUIZ CRNA Nov 18, 2017 10:15
[2017-11-18 12:00] VITALS: BP 131/59
--- NOTE | 2017-11-18 13:00 | Occupational Therapy Eval ---
OT Evaluation-General/PLF Medical Diagnosis Admission Date Nov 17, 2017 at 05:59 Medical Diagnosis: L TKA Onset Date: Nov 17, 2017 Therapy Diagnosis Therapy Diagnosis: decr self care Height/Weight Height (Feet): 5 Height (Inches): 2.00 Weight (Pounds): 219 Weight (Ounces): 0.0 Precautions Precautions/Isolations: Fall Prevention, Standard Precautions Safety Interventions: None Weight Bear Status Weight Bearing Restriction: Weight Bearing/Tolerated Location Restriction: L LE Referral Physician: Rodrigo Valadez MD Referral Reason: Evaluation/Treatment Medical History Pertinent Medical History: HTN Additional Medical History Osteoporosis. R total knee replacement about three years ago. Cataracts removed Current History Elective total knee Reviewed History: Yes Social History Home: Single Level Current Living Status: Significant Other Entry Into Home: Stairs Without Railing Steps Into Home: 4 ADL-Prior Level of Function ADL PLOF Comments Pt reported that she has been able to manage all of her basic self care needs prior to surgery. She manages her home and still drives. 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 DME/Equipment: Bath Chair, Grab Bars, Shower, Shower Hose Geropsychologist, Tall Toilet OT Current Status Subjective Pt seen in room, up in recliner, agreeable to OT. pain mentioned 6/10 but not described. Appearance Alert, cooperative Mental Status/Objective Patient Orientation: Person, Place, Time, Situation Attachments: IV, Telemetry Current Glasses/Contacts: Yes (reading) Hearing Aids: No Dentures/Partials: No Hand Dominance: Right Upper Extremity ROM Grossly WFL bilat Upper Extremity Strength grossly 5/5 bilat ADL-Treatment ADL-Current Pt was able to sit to stand with SBA this morning with PT and walked 200' with SBA, FWW. She said that she has been in the bathroom for toilet and and managed "just fine" with tall toilet, grab bars and FWW. Able to feed herself without difficulty. Briefly discussed adapted techniques for LB dressing. She feels confident about equipment available at home for ADLs. Functional Page Measure 0=Not Assessed/NA 4=Minimal Assistance 1=Total Assistance 5=Supervision or Setup 2=Maximal Assistance 6=Modified [place] 3=Moderate Assistance 7=Complete IndependenceIRFPAI Quality Coding Scale 6 Independent with activity with or without an assistive device 5 Patient requires set up or clean up by helper. Patient completes activity by themselves 4 Supervision or touching assist (CGA). [place] provide cues , steadying assist 3 The helper provides less than half the effort to complete the activity 2 The helper provides more than half the effort to complete the activity 1 Dependent. The helper does all the effort to complete an activity 7 Patient refused to complete or attempt activity 9 The patient did not perform the activity before the current illness or injury 88 Not attempted due to Medical conditions or safety concerns Education OT Patient Education: Modified ADL techniques, Purpose of tx/functional activities, Rehab process Teaching Recipient: Patient Teaching Methods: Discussion Response to Teaching: Verbalize Understanding OT Short Term Goals Short Term Goals Transfers (B,C,W/C) (FIM): 5 OT Half-Way Goals Ticker Installer Goals Time Frame: Nov 20, 2017 Bathing(FIM): 5 Upper Body Dressing(FIM): 5 Lower Body Dressing(FIM): 5 Toileting(FIM): 6 Toilet/Commode Transfer(FIM): 6 Shower Transfer(FIM): 5 Additional Goals: 2-Verbalize Understanding, 3-ImproveStrength/Nicki 1=Demonstrate adherence to instructed precautions during ADL tasks. 2=Patient will verbalize/demonstrate understanding of assistive devices/ modifications for ADL. 3=Patient will improve strength/tolerance for activity to enable patient to perform ADL's. OT Education/Plan Problem List/Assessment Assessment: Dependent Transfers, Impaired Self-Care Skills Pt would benefit from skilled ot to increase her independence in basic self care to allow her to safely return home with life partner Discharge Recommendations Plan/Recommendations: Continue POC Treatment Plan/Plan of Care Treatment,Training & Education: Yes Patient would benefit from OT for education, treatment and training to promote independence in ADL's, mobility, safety and/or upper extremity function for ADL' s. Plan of Care: ADL Retraining, Functional Mobility Treatment Duration: Nov 20, 2017 Frequency: 3 times per week Estimated Hrs Per Day: .25 hour per day (.25 to .5) Agreement: Yes Rehab Potential: Good Time/GCodes Start Time: 11:15 Stop Time: 11:28 Total Time Billed (hr/min): 13 Billed Treatment Time visit, 13 minutes evaluation low intensity ROBER COHN OT Nov 18, 2017 13:00
[2017-11-18] MEDS: morphine PCA 30 MG/30 ML VIAL IV PRN ×2 (13:08→23:40)
--- NOTE | 2017-11-18 14:13 | Physical Therapy Daily Note ---
PT Daily Note-Current Subjective Patient is still up in recliner and agrees to PT. Pain Numeric Pain Scale: 7 Location: Left Location Body Site: Knee Pain Description: Acute Mental Status Patient Orientation: Normal For Age Attachments: IV Transfers Functional [place] Measure 0=Not Assessed/NA 4=Minimal Assistance 1=Total Assistance 5=Supervision or Setup 2=Maximal Assistance 6=Modified [place] 3=Moderate Assistance 7=Complete IndependenceIRFPAI Quality Coding Scale 6 Independent with activity with or without an assistive device 5 Patient requires set up or clean up by helper. Patient completes activity by themselves 4 Supervision or touching assist (CGA). [place] provide cues , steadying assist 3 The helper provides less than half the effort to complete the activity 2 The helper provides more than half the effort to complete the activity 1 Dependent. The helper does all the effort to complete an activity 7 Patient refused to complete or attempt activity 9 The patient did not perform the activity before the current illness or injury 88 Not attempted due to Medical conditions or safety concerns Transfers (B, C, W/C) (FIM): 6 Scootin Sit to/from Stand: 6 Weight Bearing Right Lower Extremity: Right Full Weight Bearing Left Lower Extremity: Left Weight Bearing/Tolerated Gait Training Gait (FIM): 6 Distance (FIM): 3=150 ft Distance: 450' Gait Level of Assist: 6 Gait Assistive Device: FWW antalgic, education with patient on heel-toe gait sequence Exercises Supine Ex: Ankle pumps, Quad Set, Heel Slides Supine Reps: 15 (in recliner) Seated Therapy Exercises: Long arc quads Seated Reps: 15 Assessment Patient remains in recliner with polar pack in place. PT to increase activity. PT Short Term Goals Short Term Goals Time Frame: Nov 24, 2017 Transfers (B,C,W/C) (FIM): 5 Gait (FIM): 5 Gait Distance Comment: 300' Gait Level of Assist: 5 Gait Assistive Device: FWW PT Plan Treatment/Plan Treatment Plan: Continue Plan of Care Treatment Plan: Bed Mobility, Education, Functional Activity Nicki, Functional Strength, Gait, Safety, Therapeutic Exercise, Transfers Treatment Duration: Nov 24, 2017 Frequency: 11 times per week Estimated Hrs Per Day: .25 hour per day (15-30') Patient and/or Family Agrees t: Yes Time/GCodes Time In: 1330 Time Out: 1353 Total Billed Treatment Time: 23 Total Billed Treatment 1 visit EX 10 min GT 13 min RADHA LEMON PT Nov 18, 2017 14:13
--- NOTE | 2017-11-18 14:25 | Consultation ([facility]) ---
HPI History of Present Illness: 67 yo here for knee replacement surgery. Dr Valadez asked for medical consult Patient has previous h/o HTN controlled with Lisinopril-HCTZ. Patient denies any chest pain or shortness of breath. States that she has not had any troubles with her kidneys. Recently screen for DM was negative in clinic. No h/o CAD. Source: patient Exam Limitations: no limitations Date seen by provider: Nov 18, 2017 Time Seen by Provider: 10:45 Attending Physician Rodrigo Valadez MD PCP Alejandro Smith MD Consult Date of Admission Nov 17, 2017 at 05:59 Home Medications Home Medications Reviewed patient Home Medication Reconciliation performed by pharmacy medication reconciliations slot technician and/or nursing. Patients Allergies have been reviewed. Allergies Coded Allergies: Penicillins (Verified Allergy, Unknown, childhood allergy, 11/10/17) OQC-Fftsaf-Dnsofa Hx Patient Social History Living Status: Lives home alone Alcohol Use: Occasionally Uses Recreational Drug Use: No Smoking Status: Never a Smoker Recent Foreign Travel: No Contact w/other who traveled: No Recent Hopitalizations: No Recent Infectious Disease Expo: No Physical Abuse Screen: No Sexual Abuse: No Immunizations Up To Date Date of Pneumonia Vaccine: Nov 11, 2015 Past Medical History HTN Primary Osteoarthritis Family Medical History Family History: Dementia 19 MOTHER Hypertension 19 FATHER G8 BROTHER G8 SISTER Kidney disease 19 FATHER Review of Systems ([facility]) Constitutional: no symptoms reported; No chills, No fever EENTM: no symptoms reported Respiratory: no symptoms reported; No cough, No dyspnea on exertion, No short of breath Cardiovascular: no symptoms reported; No chest pain, No edema, No palpitations Gastrointestinal: no symptoms reported; No abdominal pain, No constipation, No diarrhea, No nausea, No vomiting Genitourinary: no symptoms reported; No dysuria, No frequency, No hematuria : No Musculoskeletal: joint pain Skin: no symptoms reported; No lesions, No rash Psychiatric/Neurological: No Symptoms Reported Reviewed Test Results Reviewed Test Results Lab Laboratory Tests Test 11/18/17 05:55 Range/Units Hemoglobin 10.2 L 11.5-16.0 G/DL Hematocrit 30 L 35-52 % Physical Exam-([facility]) Physical Exam Vital Signs VS - Last 72 Hours, by Label 8/29/18 8/29/18 8/29/18 8/29/18 06:20 10:05 10:17 12:00 Temp 97.9 97.3 97.6 Pulse 82 87 74 Resp 18 20 20 B/P (MAP) 100/49 (66) 109/56 (73) 109/53 (71) Pulse Ox 98 96 97 95 O2 Delivery Room Air Room Air Room Air Room Air 11/17/17 11/17/17 11/17/17 11/17/17 15:25 16:00 20:00 21:00 Temp 97.5 97.3 Pulse 77 77 Resp 16 16 16 B/P (MAP) 131/68 (89) 107/57 (74) Pulse Ox 95 97 97 O2 Delivery Room Air Room Air Room Air 11/18/17 11/18/17 11/18/17 11/18/17 00:35 04:24 06:47 08:00 Temp 97.9 97.7 98.7 Pulse 69 77 75 Resp 18 18 18 20 B/P (MAP) 110/53 (72) 104/55 (71) 127/61 (83) Pulse Ox 97 96 100 O2 Delivery Room Air Room Air Room Air 11/18/17 11/18/17 11/18/17 09:00 12:00 13:08 Temp 98.7 98.4 Pulse 90 Resp 20 20 B/P (MAP) 131/59 (83) Pulse Ox 100 O2 Delivery Room Air Capillary Refill : General Appearance: WD/WN, no apparent distress HEENT: PERRL/EOMI Neck: non-tender, supple Respiratory: chest non-tender, lungs clear, normal breath sounds, no respiratory distress, no accessory muscle use Cardiovascular: normal peripheral pulses, regular rate, rhythm, no edema, no murmur Gastrointestinal: normal bowel sounds, non tender, soft, no organomegaly Back: no CVA tenderness, no vertebral tenderness Neurologic/Psychiatric: 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, no motor/sensory deficits, alert, normal mood/affect, oriented x 3 Skin: normal color, warm/dry Lymphatic: no adenopathy Assessment/Plan Assessment/Plan Admission Status: Inpatient Order (span 2 midnights) Reason for Inpatient Admission: post op, requires pain control and PT (1) Osteoarthritis of left knee Status: Chronic Assessment & Plan: POD #1 s/p left total knee by Dr Rojas Qualifiers: Qualified Codes: M17.12 - Unilateral primary osteoarthritis, left knee (2) HTN (hypertension) Status: Chronic Assessment & Plan: - Will hold home BP meds today as pressures have been normocytic post surgery Qualifiers: Qualified Codes: I10 - Essential (primary) hypertension (3) HLD (hyperlipidemia) Status: Chronic Assessment & Plan: - Continue home statin Qualifiers: Qualified Codes: E78.2 - Mixed hyperlipidemia (4) DVT prophylaxis Status: Acute Assessment & Plan: - Lovenox Clinical Quality Measures DVT/VTE Risk/Contraindication: Risk Factor Score Per Nursin RFS Level Per Nursing on Admit: 4+=Very High Copy Copies To 1: ALEJANDRO SMITH MD, HOLLY R MD Nov 18, 2017 14:25
[2017-11-18 16:30] VITALS: BP 104/66
[2017-11-18 20:00] VITALS: BP 112/56
[2017-11-18] MEDS ORDERED: ATORVASTATIN 40 MG (LIPITOR) TABLET PO SCH (21:00)
[2017-11-19 00:03] VITALS: BP 111/53
[2017-11-19 04:40] VITALS: BP 113/59
[2017-11-19 05:55] LABS: HEMOGLOBIN 9.5 G/DL (11.5-16.0)
[2017-11-19 06:11] LABS: BUN/CREATININE RATIO 26; CALCIUM 8.8 MG/DL (8.5-10.1); CARBON DIOXIDE 22 MMOL/L (21-32); CHLORIDE 106 MMOL/L (98-107); CREATININE SERUM 0.78 MG/DL (0.60-1.30); GFR ESTIMATED > 60; GLUCOSE 96 MG/DL (70-105); SODIUM 135 MMOL/L (135-145)
[2017-11-19] MEDS: MULTIVIT W/MINERALS TAB (THERAGRAN M) PO SCH (06:17)
[2017-11-19] MEDS: oxyCODONE/APAP 5/325MG (PERCOCET 5) TABLET PO PRN ×3 (06:17→12:03)
--- NOTE | 2017-11-19 06:55 | Progress Note-Standard ---
Standard Progress Note Progress Notes/Assess & Plan Date Seen by Provider: Nov 19, 2017 Time Seen by Provider: 06:54 Progress/Assessment & Plan no complaints denies paresthesias radiographs--HW well positioned without fracture LLE--intact DF and PF of toes and ankle. 2 plus DP pulse with brisk cap refill sensation intact to light touch throughout s/p LTKA mobilize as able Final Diagnosis no complaints Vital Signs Date Time Temp Pulse Resp B/P (MAP) Pulse Ox O2 Delivery O2 Flow Rate FiO2 11/19/17 06:00 18 11/19/17 04:40 97.5 87 17 113/59 (77) 96 Room Air 11/19/17 00:03 98.2 83 17 111/53 (72) 99 Room Air 11/18/17 23:40 18 11/18/17 23:40 20 11/18/17 20:00 98.6 85 24 112/56 (74) 93 Room Air 11/18/17 19:55 Room Air 11/18/17 17:51 18 11/18/17 16:30 97.2 83 20 104/66 (79) 96 Room Air 11/18/17 15:50 97.2 11/18/17 15:20 98.4 11/18/17 13:08 20 11/18/17 12:00 98.4 90 20 131/59 (83) 100 Room Air 11/18/17 08:00 98.7 75 20 127/61 (83) 100 Room Air I & O 11/19/17 07:00 Intake Total 3840 ml Balance 3840 ml Laboratory Tests Test 11/19/17 05:30 Range/Units Hemoglobin 9.5 L 11.5-16.0 G/DL Hematocrit 29 L 35-52 % Sodium Level 135 135-145 MMOL/L Potassium Level 4.0 3.6-5.0 MMOL/L Chloride Level 106 98-107 MMOL/L Carbon Dioxide Level 22 21-32 MMOL/L Anion Gap 7 5-14 MMOL/L Blood Urea Nitrogen 20 H 7-18 MG/DL Creatinine 0.78 0.60-1.30 MG/DL Estimat Glomerular Filtration Rate > 60 BUN/Creatinine Ratio 26 Glucose Level 96 70-105 MG/DL Calcium Level 8.8 8.5-10.1 MG/DL LLE--incision clean and dry. No calf tenderness. Neg Rut's s/p LTKA doing well DC later today vs tomorrow depending on independence/ pain control LEX LLOYD MD Nov 19, 2017 06:55
[2017-11-19] MEDS: ENOXAPARIN 30 MG/0.3 ML (LOVENOX) SYR SC SCH (07:46)
[2017-11-19 08:00] VITALS: BP 113/59
[2017-11-19] MEDS: ASPIRIN E.C. 81 MG (ECOTRIN) TAB PO SCH (08:48)
[2017-11-19] MEDS: SENNA W/DOCUSATE (SENOKOT S) TABLET PO SCH (08:48)
--- NOTE | 2017-11-19 09:55 | Physical Therapy Daily Note ---
PT Daily Note-Current Subjective Patient report she is going home today. Pain Numeric Pain Scale: 8 Location: Left Location Body Site: Knee Pain Description: Ache, Acute Mental Status Patient Orientation: Normal For Age Transfers Functional [place] Measure 0=Not Assessed/NA 4=Minimal Assistance 1=Total Assistance 5=Supervision or Setup 2=Maximal Assistance 6=Modified [place] 3=Moderate Assistance 7=Complete IndependenceIRFPAI Quality Coding Scale 6 Independent with activity with or without an assistive device 5 Patient requires set up or clean up by helper. Patient completes activity by themselves 4 Supervision or touching assist (CGA). [place] provide cues , steadying assist 3 The helper provides less than half the effort to complete the activity 2 The helper provides more than half the effort to complete the activity 1 Dependent. The helper does all the effort to complete an activity 7 Patient refused to complete or attempt activity 9 The patient did not perform the activity before the current illness or injury 88 Not attempted due to Medical conditions or safety concerns Transfers (B, C, W/C) (FIM): 6 Scootin Rollin Supine to/from Sit: 6 Sit to/from Stand: 6 Bed to/from Chair: 6 Weight Bearing Right Lower Extremity: Right Full Weight Bearing Left Lower Extremity: Left Weight Bearing/Tolerated Gait Training Gait (FIM): 6 Distance (FIM): 3=150 ft Distance: 500' Gait Level of Assist: 6 Gait Assistive Device: FWW steady, antalgic Exercises Supine Ex: Ankle pumps, Quad Set, Heel Slides, Straight leg raise Supine Reps: 15 Seated Therapy Exercises: Long arc quads Seated Reps: 15 Assessment Patient tolerated treatment well and has been instructed to be up ad [place]. Plan dismissal today. PT Short Term Goals Short Term Goals Time Frame: Nov 24, 2017 Transfers (B,C,W/C) (FIM): 5 Gait (FIM): 5 Gait Distance Comment: 300' Gait Level of Assist: 5 Gait Assistive Device: FWW PT Plan Treatment/Plan Treatment Plan: Continue Plan of Care Treatment Plan: Bed Mobility, Education, Functional Activity Nicki, Functional Strength, Gait, Safety, Therapeutic Exercise, Transfers Treatment Duration: Nov 24, 2017 Frequency: 11 times per week Estimated Hrs Per Day: .25 hour per day (15-30') Patient and/or Family Agrees t: Yes Time/GCodes Time In: 820 Time Out: 847 Total Billed Treatment Time: 27 Total Billed Treatment 1 visit EX 13 min GT 14 min RADHA LEMON PT Nov 19, 2017 09:54
--- NOTE | 2017-11-19 10:52 | Discharge Summary ---
Diagnosis/Chief Complaint Date of Admission Nov 17, 2017 at 05:59 Date of Discharge 11/18/2017 Admission Diagnosis Admission Diagnosis Left Osteoarthritis s/p Total knee HTN HLD Discharge Diagnosis See Above Chief Complaint/HPI Chief Complaint/HPI 67 yo here for knee replacement surgery. Dr Valadez asked for medical consult Patient has previous h/o HTN controlled with Lisinopril-HCTZ. Patient denies any chest pain or shortness of breath. States that she has not had any troubles with her kidneys. Recently screen for DM was negative in clinic. No h/o CAD. Discharge Summary-Simple/Stand Procedures Left Total Knee Consultations Discharge Physical Examination Allergies: Coded Allergies: Penicillins (Verified Allergy, Unknown, childhood allergy, 11/10/17) Vitals & I&Os Vital Sign - Last 12Hours Date Time Temp Pulse Resp B/P (MAP) Pulse Ox O2 Delivery O2 Flow Rate FiO2 11/19/17 08:00 98.9 89 18 113/59 (77) 98 11/19/17 04:40 Room Air Intake and Output 11/19/17 00:00 Intake Total 2740 ml Balance 2740 ml General Appearance: Alert, Oriented X3, Cooperative, No Acute Distress HEENT: Mucous Memb Moist/[place] Respiratory: Clear to Auscultation, Normal Air Movement Cardiovascular: Regular Rate, No Murmurs Abdominal: Normal Bowel Sounds, Soft, No Tenderness, No Hepatosplenomegaly, No Masses Extremities: No Edema, No Tenderness/Swelling Skin: Other Neuro: Strength at 5/5 X4 Ext, Cranial Nerves 3-12 NL Psych/Mental Status: Mental Status NL, Mood NL Hospital Course See final discharge diagnosis. Discussion & Recommendations 67 yo F POD #2 from left total knee. Doing well. Walking with walker and PT feels that she is safe to be discharged home with PT. Orders have been placed HTN: Holding home bp meds as her blood pressure is normocytic. Will have close follow up with Dr Smith and Dr Valadez Discharge Condition at discharge stable Instructions to patient/family Please see electronic discharge instructions given to patient. Discharge Medications Reviewed and agree with Discharge Medication list on patient's Discharge Instruction sheet Clinical Quality Measures DVT/VTE Risk/Contraindication: Risk Factor Score Per Nursin RFS Level Per Nursing on Admit: 4+=Very High Copy Copies To 1: ALEJANDRO SMITH MD, HOLLY R MD Nov 19, 2017 10:51
--- NOTE | 2017-11-19 10:54 | Discharge Instructions ---
Discharge [facility] Discharge Medications New, Converted or Re-Newed RX: RX on Chart New Medications: Oxycodone HCl/Acetaminophen (Percocet 5-325 mg Tablet) 1 Each Tablet 1 EACH PO Q4H, #60 TAB Continued Medications: Atorvastatin Calcium (Atorvastatin Calcium) 40 Mg Tablet 40 MG PO DAILY, TAB Lisinopril/Hydrochlorothiazide (Lisinopril-Hctz 20-25 mg Tab) 1 Each Tablet 2 TAB PO DAILY, TAB Patient Instructions Goal/Follow Up Appt: You have a follow up appt with Dr Smith on Nov 30 @ 140 Patient Instructions: - Please check your blood pressure daily, if you notice that it is increasing call doctors office and report Activity & Diet Discharge Diet: Cardiac Diet Copy Copies To 1: ALEJANDRO SMITH MD, HOLLY R MD Nov 19, 2017 10:54
[2017-11-19] MEDS ORDERED: LISI1TAB10 PO (10:57)
[2017-11-19 12:00] VITALS: BP 113/53
--- NOTE | 2017-11-19 14:24 | Physical Therapy Daily Note ---
PT Daily Note-Current Subjective Patient agrees to PT. Pain Numeric Pain Scale: 7 Location: Left Location Body Site: Face Pain Description: Acute Mental Status Patient Orientation: Normal For Age Transfers Functional [place] Measure 0=Not Assessed/NA 4=Minimal Assistance 1=Total Assistance 5=Supervision or Setup 2=Maximal Assistance 6=Modified [place] 3=Moderate Assistance 7=Complete IndependenceIRFPAI Quality Coding Scale 6 Independent with activity with or without an assistive device 5 Patient requires set up or clean up by helper. Patient completes activity by themselves 4 Supervision or touching assist (CGA). [place] provide cues , steadying assist 3 The helper provides less than half the effort to complete the activity 2 The helper provides more than half the effort to complete the activity 1 Dependent. The helper does all the effort to complete an activity 7 Patient refused to complete or attempt activity 9 The patient did not perform the activity before the current illness or injury 88 Not attempted due to Medical conditions or safety concerns Transfers (B, C, W/C) (FIM): 6 Scootin Rollin Supine to/from Sit: 6 Sit to/from Stand: 6 Weight Bearing Right Lower Extremity: Right Full Weight Bearing Left Lower Extremity: Left Weight Bearing/Tolerated Gait Training Gait (FIM): 6 Distance (FIM): 3=150 ft Distance: 350' Gait Level of Assist: 6 Gait Assistive Device: FWW functional, antalgic Exercises Supine Ex: Ankle pumps, Quad Set, Heel Slides Supine Reps: 15 (in recliner) Seated Therapy Exercises: Long arc quads Seated Reps: 15 (2 sets) Assessment Patient to dismiss to home on this date with written HEP issued prior. Patient is progressing with treatment and will receive home health. PT Short Term Goals Short Term Goals Time Frame: Nov 24, 2017 Transfers (B,C,W/C) (FIM): 5 Gait (FIM): 5 Gait Distance Comment: 300' Gait Level of Assist: 5 Gait Assistive Device: FWW PT Plan Treatment/Plan Treatment Plan: Continue Plan of Care Treatment Plan: Bed Mobility, Education, Functional Activity Nicki, Functional Strength, Gait, Safety, Therapeutic Exercise, Transfers Treatment Duration: Nov 24, 2017 Frequency: 11 times per week Estimated Hrs Per Day: .25 hour per day (15-30') Patient and/or Family Agrees t: Yes Time/GCodes Time In: 1340 Time Out: 1403 Total Billed Treatment Time: 23 Total Billed Treatment 1 visit EX 14 min GT 9 min RADHA LEMON PT Nov 19, 2017 14:24
[2017-11-19 16:00] VITALS: BP 112/70
--- NOTE | 2017-11-20 04:03 | DISCHARGE SUMMARY ---
DATE OF SERVICE: DIAGNOSES: 1. Left knee primary osteoarthritis. 2. Hypertension. 3. Hyperlipidemia. 4. Osteoporosis. HISTORY: The patient is a 67-year-old female who underwent a left total knee arthroplasty on the day of admission. Postoperatively, she did very well. At the time of discharge, her wound was clean and dry. She had no calf tenderness. Negative Homans sign. She was tolerating a diet well and tolerating pain with oral pain medication. She cleared physical therapy. CONDITION AT DISCHARGE: Good. DISCHARGE DIET: Regular. FOLLOWUP: Follow up is in three weeks. Home physical therapy has been arranged. DISCHARGE MEDICATIONS: Home medications, Percocet and aspirin. ACTIVITIES: Weightbearing as tolerated with a walker. Job ID: [id number] DocumentID: [id number] Dictated Date: 11/19/2017 06:57:31 Guard Captain Date: 11/20/2017 04:03:05 Dictated By: LEX LLOYD MD
== END 2017-11-19 17:45 | disposition home health service (06) | DRG 470 ==
LOC: 4TH 05:59 → UNDOADMIN 05:59 → SURG 06:00 → 4TH 09:52
PROVIDERS: ADMIT Orthopaedic Surgery; ATTEND Orthopaedic Surgery
PROC: 0SRD0J9 Replacement of Left Knee Joint with Synthetic Substitute, Cemented, Open Approach (ICD-10-PCS; principal; 2017-11-17 07:20)
DX: M17.12 Unilateral primary osteoarthritis, left knee (principal); M81.0 Age-related osteoporosis without current pathological fracture; I10 Essential (primary) hypertension; E66.9 Obesity, unspecified; Z68.41 Body mass index [BMI] 40.0-44.9, adult; E78.2 Mixed hyperlipidemia; Z96.651 Presence of right artificial knee joint
CPT/HCPCS: 36415; 73560; 80048; 85014; 85018; 86850; 86900; 86901; 94664

== ENCOUNTER → 2018-09-19 | Outpatient (CLI) | payer MEDICARE, MEDICAID ==
[~2018-09-19] MED LIST changes: +OXYC1TAB87 PO
--- NOTE | 2018-09-19 14:06 | Diagnostic Imaging Report ---
INDICATION: Screening. TECHNIQUE: The current study was also evaluated with a Computer Aided Detection (CAD) system. 3D Tomographic imaging was also performed. COMPARISON: 09/16/2017, 08/19/2016, and 01/01/2016. FINDINGS: There are scattered fibroglandular densities bilaterally. The fibroglandular tissue has a somewhat nodular appearance which is unchanged. There are scattered benign type calcifications. There is no new dominant mass, spiculated lesion, or suspicious calcification identified. The skin, nipples, and axillae are unremarkable. IMPRESSION: Benign findings. ACR BI-RADS Category 2: Benign findings. Result letter will be mailed to the patient. Note: At least 10% of breast cancer is not imaged by mammography. Dictated by: Dictated on workstation # [id number]
== END ==
LOC: RAD 12:56
PROVIDERS: ATTEND Family Medicine
DX: Z12.31 Encounter for screening mammogram for malignant neoplasm of breast (principal)
CPT/HCPCS: 77067

== ENCOUNTER → 2019-09-25 | Outpatient (CLI) | payer MEDICARE, MEDICAID ==
[~2019-09-25] MED LIST changes: -LISI1TAB10 PO; +LISI1TAB26 PO
--- NOTE | 2019-09-26 12:34 | Diagnostic Imaging Report ---
INDICATION: Routine screening. COMPARISON: 09/19/2018 and 09/16/2017. TECHNIQUE: 2D and 3D bilateral screening mammography was performed with CAD. FINDINGS: Both breasts remain heterogeneously dense, limiting the sensitivity of mammography. A fibronodular parenchymal pattern persists. The parenchymal pattern appears to be stable. No new mass or malignant appearing microcalcifications are seen. There are benign calcifications. The axillae are unremarkable. IMPRESSION: No mammographic features suspicious for malignancy are identified. ACR BI-RADS Category 2: Benign findings. Result letter will be mailed to the patient. Note: At least 10% of breast cancer is not imaged by mammography. Dictated by: Dictated on workstation # [id number]
== END ==
LOC: RAD 13:53
PROVIDERS: ATTEND Family Medicine
DX: Z12.31 Encounter for screening mammogram for malignant neoplasm of breast (principal)
CPT/HCPCS: 77063; 77067

== ENCOUNTER → 2020-09-27 | Outpatient (CLI) | payer MEDICARE, MEDICAID ==
[~2020-09-27] MED LIST changes: +DOXY-311 PO; -DOXY100C42 PO
--- NOTE | 2020-09-27 12:35 | Diagnostic Imaging Report ---
INDICATION: Routine screening. COMPARISON is made with prior mammograms from 09/25/2019 and 09/19/2018. 2-D and 3-D bilateral screening mammography was performed with CAD. Both breasts are heterogeneously dense, limiting the sensitivity of mammography. Multiple nodules throughout both breasts are again noted and appear to be stable. No spiculated mass or malignant appearing microcalcifications are seen. Axillae are unremarkable. IMPRESSION: BI-RADS Category 2 No mammographic features suspicious for malignancy are identified. ACR BI-RADS Category 2: Benign findings. Result letter will be mailed to the patient. Note: At least 10% of breast cancer is not imaged by mammography. Dictated by: Dictated on workstation # [id number]
== END ==
LOC: RAD 10:59
PROVIDERS: ATTEND Family Medicine
DX: Z12.31 Encounter for screening mammogram for malignant neoplasm of breast (principal)
CPT/HCPCS: 77063; 77067

== ENCOUNTER → 2021-10-20 | Outpatient (CLI) | payer MEDICARE, MEDICAID ==
[~2021-10-20] MED LIST changes: -LISI1TAB26 PO; +LISI1TAB48 PO
--- NOTE | 2021-10-20 17:22 | Diagnostic Imaging Report ---
Indication: Routine screening. Comparison is made with prior mammograms from 09/27/2020 and 09/25/2019. 2-D and 3-D bilateral screening mammography was performed with CAD. Both breasts are heterogeneously dense, limiting the sensitivity of mammography. The fibronodular parenchymal pattern is stable. No spiculated mass or malignant-appearing microcalcifications are seen. Axillae are unremarkable. IMPRESSION: BI-RADS Category 2 No mammographic features suspicious for malignancy are identified. ACR BI-RADS Category 2: Benign findings. Result letter will be mailed to the patient. Note: At least 10% of breast cancer is not imaged by mammography. Dictated by: Dictated on workstation # [id number]
== END ==
LOC: RAD 11:00
PROVIDERS: ATTEND Family Medicine
DX: Z12.31 Encounter for screening mammogram for malignant neoplasm of breast (principal)
CPT/HCPCS: 77063; 77067

== ENCOUNTER → 2021-11-04 | Outpatient (CLI) | payer MEDICARE, MEDICAID ==
--- NOTE | 2021-11-04 12:52 | Diagnostic Imaging Report ---
INDICATION: Postmenopausal screening COMPARISON: Baseline FINDINGS: AP Spine L1-L4: [BMD (g/cm2): 0.975] [T-Score: -1.9] [Z-Score: -1.3] [BMD Previous: N/A] [BMD % Change: N/A] LT Hip Neck: [BMD (g/cm2): 0.766] [T-Score: -2.0] [Z-Score: -0.9] LT Hip Total: [BMD (g/cm2):0.811] [T-Score:-1.6] [Z-Score: -0.8] [BMD Previous: N/A] [BMD % Change: N/A] RT Hip Neck: [BMD (g/cm2):0.824] [T-Score:-1.5] [Z-Score:-0.5] RT Hip Total: [BMD (g/cm2):0.830] [T-score:-1.4] [Z-Score:-0.7] [BMD Previous:N/A] [BMD % Change:N/A] *Indicates significant change from prior examination based on 95% confidence level. World Health Organization criteria for BMD interpretation classify patients as Normal (T-score at or above -1.0), Osteopenic (T-score between -1.0 and -2.5) or Osteoporotic (T-score at or below -2.5). LIMITATIONS AND MODIFICATION: None. FRACTURE RISK (FRAX SCORE): The ten year probability of (%): Major Osteoporotic Fracture: [16.1] Hip Fracture: [5.1] IMPRESSION: 1. Osteopenia (Low bone mass). 2. Baseline examination. 3. See below National Osteopor[employer] Foundation guidelines on when to potentially initiate pharmacologic therapy. Based on the National Osteoporosis Foundation Guidelines, pharmacologic treatment should be initiated in any of the following, unless clinical conditions suggest otherwise: * Any patient with prior fragility fracture of the hip or vertebrae. A spine fracture indicates 5X risk for subsequent spine fracture and 2X risk for subsequent hip fracture. * Osteoporosis (T-score <-2.5). * Postmenopausal women and men age 50 and older with low bone mass/osteopenia (T-score between -1.0 and -2.5) by DXA and 10-year major osteoporotic fracture greater than 20% or a 10-year probability of hip fracture greater than 3%. These fracture risks are supplied above in the FRAX score, if applicable. * Clinician judgement and/or patient preferences may indicate treatment for people with 10-year fracture probabilities above or below these levels. Dictated by: Dictated on workstation # [id number]
== END ==
LOC: RAD 09:56
PROVIDERS: ATTEND Family Medicine
DX: M85.80 Other specified disorders of bone density and structure, unspecified site (principal); Z78.0 Asymptomatic menopausal state
CPT/HCPCS: 77080